=== PATIENT | female | born 1930 | race Caucasian/White ===

== ENCOUNTER → 2016-11-17 | Outpatient (CLI) | payer MEDICARE, OTHER ==
[~2016-11-17] MED LIST: ACET325T PO; ALBUAER3 INH; AMLO5 PO; APIX5TAB PO; ATEN25TA PO; BENETAB PO; COLA100C3 PO; ESTR.625 PO; FEXO15TA PO; FURO1TAB62 PO; HYDR-3516 PO; K-TA10TA PO; LACTCAP8 PO; LEVO.05 PO; LISI10TA3 PO; MOME17I EACH NARE; MULT1TAB84 PO; ZOFR4TAB3 SL
[2016-11-17 13:05] LABS: AUTOMATED NEUTROPHIL # 3.7 TH/MM3 (1.8-7.7); BASOPHIL # 0.1 TH/MM3 (0-0.2); BASOPHIL % 0.9 % (0.0-2.0); EOSINOPHIL # 0.1 TH/MM3 (0-0.4); EOSINOPHIL % 2.5 % (0.0-4.0); HEMATOCRIT 38.1 % (35.0-46.0); HEMO FLAGS DIFF FINAL; LYMPH % 16.6 % (9.0-44.0); LYMPHOCYTE # 0.9 TH/MM3 (1.0-4.8); MEAN CELL VOLUME 92.7 FL (80.0-100.0); MEAN CORPUSCULAR HEMOGLOBIN 31.7 PG (27.0-34.0); MEAN CORPUSCULAR HGB CONC 34.2 % (32.0-36.0); MONO % 11.4 % (0.0-8.0); NEUT % 68.6 % (16.0-70.0); PLATELET COUNT 191 TH/MM3 (150-450); RED CELL DISTRIBUTION WIDTH 13.2 % (11.6-17.2); WHITE BLOOD COUNT 5.4 TH/MM3 (4.0-11.0)
[2016-11-17 13:32] LABS: ALKALINE PHOSPHATASE 62 U/L (45-117); ALT (GPT) 22 U/L (10-53); ANION GAP 6 MEQ/L (5-15); AST (GOT) 18 U/L (15-37); BICARBONATE 29.7 MEQ/L (21.0-32.0); BLOOD UREA NITROGEN 16 MG/DL (7-18); CHLORIDE 101 MEQ/L (98-107); GLOMERULAR FILTRATION RATE 69 ML/MIN (>89); GLUCOSE,FASTING 75 MG/DL (74-99); HDL CHOLESTEROL 79.8 MG/DL (40.0-60.0); LDL CHOLESTEROL 85 MG/DL (0-99); POTASSIUM 4.1 MEQ/L (3.5-5.1); SODIUM (NA) 137 MEQ/L (136-145); TOTAL BILIRUBIN ADULT 0.5 MG/DL (0.2-1.0)
== END ==
LOC: PLAB 10:00
PROVIDERS: ATTEND Family Medicine
DX: I25.10 Atherosclerotic heart disease of native coronary artery without angina pectoris (principal); E78.5 Hyperlipidemia, unspecified; E03.2 Hypothyroidism due to medicaments and other exogenous substances; I10 Essential (primary) hypertension; Z79.01 Long term (current) use of anticoagulants
CPT/HCPCS: 36415; 80053; 80061; 84443; 85025

== ENCOUNTER 2017-01-19 15:56 | Emergency (ER) | payer MEDICARE, OTHER ==
[~2017-01-19] VITALS: Ht 160 cm; Wt 72.0 kg
[~2017-01-19 15:56] MED LIST changes: -ACET325T PO; -ALBUAER3 INH; -HYDR-3516 PO; -MOME17I EACH NARE; -MULT1TAB84 PO
[2017-01-19 16:00] VITALS: BP 158/80; PULSE 83; RESP 18; TEMP 97.6; O2SAT 97
[2017-01-19] MEDS ORDERED: SODIUM CHLOR 0.9% 1000 ML INJ 1,000 ML IV SCH (16:26)
[2017-01-19] MEDS ORDERED: MULT1TAB84 PO (16:29)
[2017-01-19] MEDS ORDERED: HYDR-3516 PO (16:29)
[2017-01-19] MEDS ORDERED: MOME17I EACH NARE (16:29)
[2017-01-19] MEDS ORDERED: BENETAB PO (16:29)
[2017-01-19] MEDS ORDERED: ALBUAER3 INH (16:29)
[2017-01-19] MEDS ORDERED: ONDANSETRON HCL 4 MG/2 ML VIAL IVP ONE (16:30)
[2017-01-19] MEDS: MORPHINE SULFATE 4 MG/ML INJ IV PUSH ONE ×2 (16:30→16:56)
[2017-01-19] MEDS ORDERED: SODIUM CHLORIDE 0.9% FLUSH 10 ML FLUSH IV FLUSH PRN (16:30)
--- NOTE | 2017-01-19 16:39 | PD ---
HPI Chief Complaint: Abdominal Pain Time Seen by Provider: 16:19 Travel History International Travel<30 days: No Contact w/Intl Traveler<30days: No Traveled to known affect area: No History of Present Illness HPI 86yo F with PMH of HTN and significant surgical history including hysterectomy, cholecystectomy, appendectomy, partial colon resection after polyp was found presents to the ED with c/o left sided abdominal pain, intermittent watery, nonbloody diarrhea and nausea for 2 weeks. Pt denies any fever, recent traveling, vomiting, urinary complaints. Pt did take antibiotic for URI about 1 month ago. 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 ) Cardiovascular Problems: Yes (PACER) High Cholesterol: Yes Chemotherapy: No Chest Pain: No Congestive Heart Failure: Yes Cerebrovascular Accident: No Diabetes: No Diminished Hearing: No Gastrointestinal Disorders: Yes (IBS) GERD: Yes Genitourinary: Yes Hepatitis: No Hiatal Hernia: No Hypertension: Yes Immune Disorder: No Implanted Vascular Access Dvce: Yes (PACEMAKER LEFT UPPER CHEST) 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) Psychiatric: No Reproductive: No Respiratory: Yes (ASTHMA) Immunizations Current: Yes Shingles: Yes Sleep Apnea: No Thyroid Disease: Yes Tetanus Vaccination: > 5 Years Influenza Vaccination: Yes ?: Not Menopausal: Yes : 4 Para: 3 Miscarriage: 1 Ovarian Cysts: Yes Past Surgical History Abdominal Surgery: Yes (PARTIAL COLECTOMY (POLYPS), LAP XUAN, APPY) AICD: No Appendectomy: Yes Body Medical Devices: RIGHT RENAL ARTERY STENT Cardiac Surgery: Yes (PACEMAKER) Cholecystectomy: Yes Ear Surgery: No Endocrine Surgery: No Eye Surgery: Yes (BILAT CATARACT EXT) Genitourinary Surgery: Yes (RIGHT RENAL ARTERY STENT IMPL) Gynecologic Surgery: Yes ([place], UNILAT. OOPHORECT.) Hysterectomy: No Joint Replacement: No Neurologic Surgery: Yes (LUMBAR FUSION, LUMBAR LAMI) Oral Surgery: Yes (T & A) Pacemaker: Yes (MEDTRONIC) Thoracic Surgery: No Tonsillectomy: Yes Other Surgery: Yes (NOSE SURGERY, PACEMAKER REPLACEMENT) Social History Alcohol Use: No Tobacco Use: No Substance Use: No Allergies-Medications (Allergen,Severity, Reaction): Coded Allergies: Adhesives (Verified Allergy, Severe, RASH, BLISTERS, 01/19/17) Cepacol (Verified Allergy, Severe, throat closes, 01/19/17) Levaquin (Verified Allergy, Severe, Nausea/Vomiting, 01/19/17) Penicillin (Verified Allergy, Severe, Rash, SWELLING, 01/19/17) Sulfa (Verified Allergy, Severe, Rash, 01/19/17) Latex (Verified Allergy, Mild, Rash, 01/19/17) Nonsteroidal Anti-Inflammatory Agts (Verified Adverse Reaction, Severe, Rash, 01/19/17) Uncoded Allergies: TEGADERM (Allergy, Severe, RASH, 10/24/14) Reported Meds & Prescriptions Reported Meds & Active Scripts Active Reported Benefiber (Wheat Dextrin) 1 Tab 1 Tab PO DAILY Multivitamin Adults (Multiple Vitamins W/ Minerals) 1 Tab 1 Tab PO DAILY Nasonex Nasal [place] (Mometasone Furoate) 50 Mcg/Act Naspr 2 [place] EACH NARE DAILY PRN Hydrocodone-Acetaminophen 5-325 mg Tab 1 Tab PO Q6H PRN Proair Hfa 8.5 GM Inh (Albuterol Sulfate) 90 Mcg/Act Aer 2 Puff INH Q4-6H PRN 108 mcg/actuation Lisinopril 10 Mg Tab 10 Mg PO DAILY@1600 Probiotic (Lactobacillus Acidophilus) 1 Cap Cap 1 Cap PO DAILY Premarin (Estrogens Conjugated) 0.625 Mg Tab 0.625 Mg PO DAILY K-Tab (Potassium Chloride) 10 Meq Tab 10 Meq PO HS Synthroid (Levothyroxine Sodium) 50 Mcg Tab 50 Mcg PO DAILY Eliquis (Apixaban) 5 Mg Tab 5 Mg PO BID Norvasc (Amlodipine Besylate) 5 Mg Tab 5 Mg PO DAILY Lasix (Furosemide) 20 Mg Tab 20 Mg PO DAILY Atenolol 25 Mg Tab 25 Mg PO DAILY Nanci Allergy (Fexofenadine HCl) 180 Mg Tab 180 Mg PO DAILY Review of Systems Except as stated in HPI: all other systems reviewed are Neg Physical Exam Narrative GENERAL: 86yo F in mild distress. SKIN: Focused skin assessment warm/dry. HEAD: Atraumatic. Normocephalic. CARDIOVASCULAR: Regular rate and rhythm. No murmur appreciated. RESPIRATORY: No accessory muscle use. Clear to auscultation. Breath sounds equal bilaterally. GASTROINTESTINAL: Abdomen soft, +TTP LLQ >LUQ. No rebound tenderness or guarding. MUSCULOSKELETAL: No obvious deformities. No clubbing. No cyanosis. Trace lower ext edema. NEUROLOGICAL: Awake and alert. No obvious cranial nerve deficits. Motor grossly within normal limits. Normal speech. PSYCHIATRIC: Appropriate mood and affect; insight and judgment normal. Data Data Last Documented VS Vital Signs Date Time Temp Pulse Resp B/P Pulse Ox O2 Delivery O2 Flow Rate FiO2 01/19/17 16:50 98 Room Air 01/19/17 16:50 65 16 146/89 01/19/17 16:00 97.6 Orders Urinalysis - C+S If Indicated (01/19/17 16:04) Complete Blood Count With Diff (01/19/17 16:26) Comprehensive Metabolic Panel (01/19/17 16:26) Lipase (01/19/17 16:26) Prothrombin Time / Inr (Pt) (01/19/17 16:26) Act Partial Throm Time (Ptt) (01/19/17 16:26) Ct Abd/Pel W Iv Contrast(Rout) (01/19/17 16:26) Iv Access Insert/Monitor (01/19/17 16:26) Ecg Monitoring (01/19/17 16:26) Oximetry (01/19/17 16:26) Morphine Inj (Morphine Inj) (01/19/17 16:30) Ondansetron Inj (Zofran Inj) (01/19/17 16:30) Sodium Chlor 0.9% 1000 Ml Inj (Ns 1000 M (01/19/17 16:26) Sodium Chloride 0.9% Flush (Ns Flush) (01/19/17 16:30) C Diff Toxin Pcr (01/19/17 16:39) Iohexol 350 Inj (Omnipaque 350 Inj) (01/19/17 17:56) Labs Laboratory Tests Test 01/19/17 01/19/17 16:40 16:45 Urine Color YELLOW Urine Turbidity CLEAR Urine pH 5.5 Urine Specific [place] 1.018 Urine Protein NEG mg/dL Urine Glucose (UA) NEG mg/dL Urine Ketones NEG mg/dL Urine Occult Blood NEG Urine Nitrite NEG Urine Bilirubin NEG Urine Leukocyte Esterase NEG Urine WBC 0-2 /hpf Urine Squamous Epithelial 0-5 /hpf Cells Microscopic Urinalysis Comment CULT NOT INDICATED White Blood Count 6.8 TH/MM3 Red Blood Count 4.32 MIL/MM3 Hemoglobin 13.1 GM/DL Hematocrit 39.8 % Mean Corpuscular Volume 92.1 FL Mean Corpuscular Hemoglobin 30.4 PG Mean Corpuscular Hemoglobin 33.0 % Concent Red Cell Distribution Width 12.5 % Platelet Count 219 TH/MM3 Mean Platelet Volume 7.8 FL Neutrophils (%) (Auto) 58.1 % Lymphocytes (%) (Auto) 30.3 % Monocytes (%) (Auto) 9.1 % Eosinophils (%) (Auto) 1.9 % Basophils (%) (Auto) 0.6 % Neutrophils # (Auto) 4.0 TH/MM3 Lymphocytes # (Auto) 2.1 TH/MM3 Monocytes # (Auto) 0.6 TH/MM3 Eosinophils # (Auto) 0.1 TH/MM3 Basophils # (Auto) 0.0 TH/MM3 CBC Comment DIFF FINAL Differential Comment Prothrombin Time 10.3 SEC Prothromb Time International 0.9 RATIO Ratio Activated Partial 27.5 SEC Thromboplast Time Sodium Level 135 MEQ/L Potassium Level 3.7 MEQ/L Chloride Level 100 MEQ/L Carbon Dioxide Level 27.4 MEQ/L Anion Gap 8 MEQ/L Blood Urea Nitrogen 17 MG/DL Creatinine 0.86 MG/DL Estimat Glomerular Filtration 63 ML/MIN Rate Random Glucose 102 MG/DL Calcium Level 8.7 MG/DL Total Bilirubin 0.2 MG/DL Aspartate Amino Transf 21 U/L (AST/SGOT) Alanine Aminotransferase 24 U/L (ALT/SGPT) Alkaline Phosphatase 66 U/L Total Protein 7.3 GM/DL Albumin 3.3 GM/DL Lipase 177 U/L [facility] Medical Decision Making Medical Screen Exam Complete: Yes Emergency Medical Condition: Yes Interpretation(s) Laboratory Tests Test 01/19/17 01/19/17 16:40 16:45 Urine Color YELLOW (YELLW/STRAW) Urine Turbidity CLEAR (CLEAR) Urine pH 5.5 (5.0-8.5) Urine Specific [place] 1.018 (1.002-1.035) Urine Protein NEG mg/dL (NEG-TRACE) Urine Glucose (UA) NEG mg/dL (NEG) Urine Ketones NEG mg/dL (NEG) Urine Occult Blood NEG (NEG) Urine Nitrite NEG (NEG) Urine Bilirubin NEG (NEG) Urine Leukocyte Esterase NEG (NEG) Urine WBC 0-2 /hpf (0-5) Urine Squamous Epithelial 0-5 /hpf (0-5) Cells Microscopic Urinalysis Comment CULT NOT INDICATED White Blood Count 6.8 TH/MM3 (4.0-11.0) Red Blood Count 4.32 MIL/MM3 (4.00-5.30) Hemoglobin 13.1 GM/DL (11.6-15.3) Hematocrit 39.8 % (35.0-46.0) Mean Corpuscular Volume 92.1 FL (80.0-100.0) Mean Corpuscular Hemoglobin 30.4 PG (27.0-34.0) Mean Corpuscular Hemoglobin 33.0 % Concent (32.0-36.0) Red Cell Distribution Width 12.5 % (11.6-17.2) Platelet Count 219 TH/MM3 (150-450) Mean Platelet Volume 7.8 FL (7.0-11.0) Neutrophils (%) (Auto) 58.1 % (16.0-70.0) Lymphocytes (%) (Auto) 30.3 % (9.0-44.0) Monocytes (%) (Auto) 9.1 % (0.0-8.0) Eosinophils (%) (Auto) 1.9 % (0.0-4.0) Basophils (%) (Auto) 0.6 % (0.0-2.0) Neutrophils # (Auto) 4.0 TH/MM3 (1.8-7.7) Lymphocytes # (Auto) 2.1 TH/MM3 (1.0-4.8) Monocytes # (Auto) 0.6 TH/MM3 (0-0.9) Eosinophils # (Auto) 0.1 TH/MM3 (0-0.4) Basophils # (Auto) 0.0 TH/MM3 (0-0.2) CBC Comment DIFF FINAL Differential Comment Prothrombin Time 10.3 SEC (9.8-11.6) Prothromb Time International 0.9 RATIO Ratio Activated Partial 27.5 SEC Thromboplast Time (24.3-30.1) Sodium Level 135 MEQ/L (136-145) Potassium Level 3.7 MEQ/L (3.5-5.1) Chloride Level 100 MEQ/L (98-107) Carbon Dioxide Level 27.4 MEQ/L (21.0-32.0) Anion Gap 8 MEQ/L (5-15) Blood Urea Nitrogen 17 MG/DL (7-18) Creatinine 0.86 MG/DL (0.50-1.00) Estimat Glomerular Filtration 63 ML/MIN (>89) Rate Random Glucose 102 MG/DL (74-106) Calcium Level 8.7 MG/DL (8.5-10.1) Total Bilirubin 0.2 MG/DL (0.2-1.0) Aspartate Amino Transf 21 U/L (15-37) (AST/SGOT) Alanine Aminotransferase 24 U/L (10-53) (ALT/SGPT) Alkaline Phosphatase 66 U/L (45-117) Total Protein 7.3 GM/DL (6.4-8.2) Albumin 3.3 GM/DL (3.4-5.0) Lipase 177 U/L (73-393) Last Impressions Abdomen/Pelvis CT 01/19/17 1626 Signed Impressions: Service Date/Time: Thursday, January 19, 2017 17:46 - CONCLUSION: 1. Unremarkable bowel gas pattern with no inflammatory change or obstruction. 2. Status post cholecystectomy. Zion Lopez MD Differential Diagnosis Diverticulitis vs. cdiff colitis vs. malignancy vs. gastroenteritis Narrative Course 86yo F with intermittent diarrhea for 2 weeks. However, VS stable and pt is not tachycardic or hypotensive. Labs reviewed, no leukocytosis. BUN/ creatinine normal. Lipase normal. UA negative. Cta/p unremarkable. No inflammatory change or obstruction. Pt given NS IVF, zofran and morphine 2mg IV. Pt reevaluated at bedside and denies any nausea or abdominal pain. Abd soft, NT/ ND. Pt states she only had 1 episode of diarrhea today so was not able to give a sample. Pt is well appearing and can follow up with PMD. Return precautions given. Diagnosis Primary Impression: Abdominal pain Qualified Code: R10.32 - Left lower quadrant pain Patient Instructions: General Instructions Departure Forms: Tests/Procedures Additional Instructions: Please follow up with your PMD in 1-2 days. Return to the ED if symptoms worsen. Med/Other Pt SpecificInfo: Prescription(s) given Scripts Acetaminophen 325 Mg [id number] Mg PO Q4-6H PRN (PAIN SCALE 1 TO 4) #20 TAB Ref 0 Prov:Costa,Lori DO 01/19/17 Disposition: 01 DISCHARGE HOME Condition: Stable Lori Costa DO Jan 19, 2017 16:39
[2017-01-19 16:50] VITALS: BP 146/89; PULSE 65; RESP 16; O2SAT 98
[2017-01-19 17:06] LABS: BASOPHIL % 0.6 % (0.0-2.0); EOSINOPHIL # 0.1 TH/MM3 (0-0.4); EOSINOPHIL % 1.9 % (0.0-4.0); HEMATOCRIT 39.8 % (35.0-46.0); HEMO FLAGS DIFF FINAL; LYMPH % 30.3 % (9.0-44.0); LYMPHOCYTE # 2.1 TH/MM3 (1.0-4.8); MEAN CELL VOLUME 92.1 FL (80.0-100.0); MEAN CORPUSCULAR HEMOGLOBIN 30.4 PG (27.0-34.0); MONO % 9.1 % (0.0-8.0); NEUT % 58.1 % (16.0-70.0); PLATELET COUNT 219 TH/MM3 (150-450); RED BLOOD COUNT 4.32 MIL/MM3 (4.00-5.30); RED CELL DISTRIBUTION WIDTH 12.5 % (11.6-17.2); WHITE BLOOD COUNT 6.8 TH/MM3 (4.0-11.0)
[2017-01-19 17:06] LABS: BLOOD, URINE NEG (NEG); GLUCOSE,URINE NEG (NEG); KETONE, URINE NEG (NEG); NITRITE,URINE NEG (NEG); PH, URINE 5.5 (5.0-8.5)
[2017-01-19 17:12] LABS: CHLORIDE 100 MEQ/L (98-107); POTASSIUM 3.7 MEQ/L (3.5-5.1); SODIUM (NA) 135 MEQ/L (136-145)
[2017-01-19 17:14] LABS: URINE COLOR YELLOW (YELLW/STRAW)
[2017-01-19 17:16] LABS: COMMENT (UR) CULT NOT INDICATED; CULTURE IF INDICATED CULT NOT INDICATED; SQUAMOUS EPITHELIAL CELL URINE 0-5 /hpf (0-5); WBC, URINE 0-2 /hpf (0-5)
[2017-01-19 17:16] LABS: ANION GAP 8 MEQ/L (5-15); APTT (PATIENT) 27.5 SEC (24.3-30.1); BICARBONATE 27.4 MEQ/L (21.0-32.0); BLOOD UREA NITROGEN 17 MG/DL (7-18); INTERNATIONAL NORMALIZED RATIO 0.9 RATIO; PROTHROMBIN TIME - PATIENT 10.3 SEC (9.8-11.6)
[2017-01-19 17:19] LABS: ALT (GPT) 24 U/L (10-53); AST (GOT) 21 U/L (15-37); GLOMERULAR FILTRATION RATE 63 ML/MIN (>89)
[2017-01-19 17:20] LABS: TOTAL BILIRUBIN ADULT 0.2 MG/DL (0.2-1.0)
[2017-01-19 17:22] LABS: ALKALINE PHOSPHATASE 66 U/L (45-117)
[2017-01-19] MEDS ORDERED: IOHEXOL 350 MG/ML 10 ML VIAL (for RAD DIAG) IV ONE (17:56)
--- NOTE | 2017-01-19 18:08 | RADHPO ---
EXAM DATE/TIME: 01/19/2017 17:46 [facility] COMPARISON: CT ABDOMEN & PELVIS W CONTRAST, September 25, 2016, 23:41. INDICATIONS : Lower abdominal pain with diarrhea. IV CONTRAST: 75 cc Omnipaque 350 (iohexol) IV ORAL CONTRAST: No oral contrast ingested. RADIATION DOSE: 14.22 CTDIvol (mGy) MEDICAL HISTORY : Cardiovascular disease. Hypertension. SURGICAL HISTORY : Appendectomy. Cholecystectomy.Pacemaker.Lumbar fusion. Partial colectomy. Right renal stent. ENCOUNTER: Initial ACUITY: 2 weeks PAIN SCALE: 4/10 LOCATION: Left lower quadrant TECHNIQUE: Volumetric scanning of the abdomen and pelvis was performed. Using automated exposure control and ad justment of the mA and/or kV according to patient size, radiation dose was kept as low as reasonably achievable to obtain optimal diagnostic quality images. FINDINGS: LOWER LUNGS: The visualized lower lungs are clear. LIVER: Homogeneous density without lesion. There is no dilation of the biliary tree. The patient is status post cholecystectomy. SPLEEN: Normal size without lesion. PANCREAS: Within normal limits. KIDNEYS: Normal in size and shape. There is no mass, stone or hydronephrosis. ADRENAL GLANDS: Within normal limits. VASCULAR: There is no aortic aneurysm. BOWEL/MESENTERY: The stomach, small bowel, and colon demonstrate no acute abnormality. There is no free intraperitone al air or fluid. ABDOMINAL WALL: Within normal limits. RETROPERITONEUM: There is no lymphadenopathy. BLADDER: No wall thickening or mass. REPRODUCTIVE: Within normal limits. INGUINAL: There is no lymphadenopathy or hernia. MUSCULOSKELETAL: Within normal limits for patient age. CONCLUSION: 1. Unremarkable bowel gas pattern with no inflammatory change or obstruction. 2. Status post cholecystectomy. Zion Lopez MD on January 19, 2017 at 17:58 Board Certified Radiologist. This report was verified electronically.
[2017-01-19] MEDS ORDERED: ACET325T PO (18:37)
[2017-01-19 18:55] VITALS: BP 161/81; PULSE 61; RESP 16; O2SAT 98
== END 2017-01-19 19:09 | disposition home or self-care (01) ==
LOC: PHED 15:56
DX: R10.32 Left lower quadrant pain (principal); I45.10 Unspecified right bundle-branch block; E78.00 Pure hypercholesterolemia, unspecified; I50.9 Heart failure, unspecified; K58.9 Irritable bowel syndrome, unspecified; I10 Essential (primary) hypertension; Z95.0 Presence of cardiac pacemaker; J45.909 Unspecified asthma, uncomplicated
CPT/HCPCS: 74177; 80053; 81001; 83690; 85025; 85610; 85730; 96361; 96374; 99284; J2405; J7030; Q9967; J2270

== ENCOUNTER → 2017-05-13 | Outpatient (CLI) | payer MEDICARE, OTHER ==
[~2017-05-13] MED LIST changes: +ACET325T PO; +ALBUAER3 INH; +AMIO200T PO; +COLA100C PO; -COLA100C3 PO; +HYDR-3516 PO; +MOME17I EACH NARE; +MULT1TAB84 PO; +SYMB160A INH; -ZOFR4TAB3 SL
[2017-05-13 11:25] LABS: AUTOMATED NEUTROPHIL # 3.9 TH/MM3 (1.8-7.7); BASOPHIL % 0.6 % (0.0-2.0); EOSINOPHIL # 0.3 TH/MM3 (0-0.4); EOSINOPHIL % 3.8 % (0.0-4.0); HEMATOCRIT 37.1 % (35.0-46.0); HEMO FLAGS DIFF FINAL; LYMPH % 31.1 % (9.0-44.0); LYMPHOCYTE # 2.2 TH/MM3 (1.0-4.8); MEAN CELL VOLUME 91.8 FL (80.0-100.0); MEAN CORPUSCULAR HGB CONC 33.7 % (32.0-36.0); MONO % 8.8 % (0.0-8.0); NEUT % 55.7 % (16.0-70.0); PLATELET COUNT 247 TH/MM3 (150-450); RED BLOOD COUNT 4.04 MIL/MM3 (4.00-5.30); WHITE BLOOD COUNT 7.1 TH/MM3 (4.0-11.0)
[2017-05-13 11:48] LABS: ANION GAP 7 MEQ/L (5-15); AST (GOT) 16 U/L (15-37); BICARBONATE 27.6 MEQ/L (21.0-32.0); BLOOD UREA NITROGEN 24 MG/DL (7-18); CHLORIDE 101 MEQ/L (98-107); GLOMERULAR FILTRATION RATE 58 ML/MIN (>89); GLUCOSE,FASTING 74 MG/DL (74-99); SODIUM (NA) 136 MEQ/L (136-145)
[2017-05-13 11:49] LABS: ALT (GPT) 26 U/L (10-53)
[2017-05-13 11:59] LABS: ALKALINE PHOSPHATASE 50 U/L (45-117); HDL CHOLESTEROL 78.1 MG/DL (40.0-60.0); LDL CHOLESTEROL 75 MG/DL (0-99); TOTAL BILIRUBIN ADULT 0.4 MG/DL (0.2-1.0)
== END ==
LOC: PLAB 08:45
PROVIDERS: ATTEND Family Medicine
DX: I25.10 Atherosclerotic heart disease of native coronary artery without angina pectoris (principal); E78.5 Hyperlipidemia, unspecified; E03.2 Hypothyroidism due to medicaments and other exogenous substances; G25.81 Restless legs syndrome; I10 Essential (primary) hypertension; Z79.01 Long term (current) use of anticoagulants
CPT/HCPCS: 36415; 80053; 80061; 84443; 85025

== ENCOUNTER 2017-06-07 13:14 | Emergency (ER) | payer MEDICARE, OTHER ==
[~2017-06-07] VITALS: Ht 160 cm; Wt 72.0 kg
[~2017-06-07 13:14] MED LIST changes: -AMIO200T PO; -COLA100C PO; -SYMB160A INH
[2017-06-07 14:59] VITALS: PULSE 80; RESP 16; TEMP 97.3; O2SAT 96
[2017-06-07] MEDS ORDERED: LIDOCAINE VISCOUS 2% SOLN 15 ML UDC PO ONE (16:00)
[2017-06-07] MEDS ORDERED: SODIUM CHLORIDE 0.9% FLUSH 10 ML FLUSH IV FLUSH PRN (16:00)
--- NOTE | 2017-06-07 16:02 | PD ---
HPI Chief Complaint: ENT Complaint Time Seen by Provider: 15:53 Travel History International Travel<30 days: No Contact w/Intl Traveler<30days: No Traveled to known affect area: No History of Present Illness HPI 86-year-old female with history of asthma, here for evaluation of sore throat and cough. The patient states that she has had 2 asthma attacks over the last 2 weeks. She was started on prednisone by her primary care physician which she has finished. She has also had a sore throat for the last 5 days. She started taking clarithromycin for this 4 days ago. Sore throat is moderate, worse with swallowing making it difficult for her to swallow. She denies fevers. Cough is productive of clear sputum. She takes Nanci daily. 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 ) Cardiovascular Problems: Yes (PACER) High Cholesterol: Yes Chemotherapy: No Chest Pain: No Congestive Heart Failure: Yes Cerebrovascular Accident: No Diabetes: No Diminished Hearing: No Gastrointestinal Disorders: Yes (IBS) GERD: Yes Genitourinary: Yes Hepatitis: No Hiatal Hernia: No Hypertension: Yes Immune Disorder: No Implanted Vascular Access Dvce: Yes (PACEMAKER LEFT UPPER CHEST) 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 OOPHORECT.) Hysterectomy: No Joint Replacement: No Neurologic Surgery: Yes (LUMBAR FUSION, LUMBAR LAMI) Oral Surgery: Yes (T & A) Pacemaker: Yes (MEDTRONIC) Thoracic Surgery: No Tonsillectomy: Yes Other Surgery: Yes (NOSE SURGERY, PACEMAKER REPLACEMENT) Social History Alcohol Use: No Tobacco Use: No Substance Use: No Allergies-Medications (Allergen,Severity, Reaction): Coded Allergies: Sulfa (Sulfonamide Antibiotics) (Unverified Allergy, Severe, Rash, 06/07/17 ) adhesive (Unverified Allergy, Severe, RASH, BLISTERS, 06/07/17) cetylpyridinium chloride (Unverified Allergy, Severe, throat closes, ) levofloxacin (Unverified Allergy, Severe, Nausea/Vomiting, 06/07/17) penicillin G (Unverified Allergy, Severe, Rash, SWELLING, 06/07/17) latex (Unverified Allergy, Mild, Rash, 06/07/17) diclofenac (Unverified Adverse Reaction, Severe, Rash, 06/07/17) etodolac (Unverified Adverse Reaction, Severe, Rash, 06/07/17) flurbiprofen (Unverified Adverse Reaction, Severe, Rash, 06/07/17) ibuprofen (Unverified Adverse Reaction, Severe, Rash, 06/07/17) indomethacin (Unverified Adverse Reaction, Severe, Rash, 06/07/17) ketoprofen (Unverified Adverse Reaction, Severe, Rash, 06/07/17) ketorolac (Unverified Adverse Reaction, Severe, Rash, 06/07/17) naproxen (Unverified Adverse Reaction, Severe, Rash, 06/07/17) oxaprozin (Unverified Adverse Reaction, Severe, Rash, 06/07/17) Uncoded Allergies: TEGADERM (Allergy, Severe, RASH, 10/24/14) Reported Meds & Prescriptions Reported Meds & Active Scripts Active Reported Symbicort Inh (Budesonide/Formoterol Fumarate) 160-4.5 Mcg/Act Aero 1 Puff INH Q12HR Proair Hfa 8.5 GM Inh (Albuterol Sulfate) 90 Mcg/Act Aer 2 Puff INH Q4-6H PRN 108 mcg/actuation Colace (Docusate Sodium) 100 Mg Capsule 200 Mg PO HS Amiodarone (Amiodarone HCl) 200 Mg Tab 200 Mg PO DAILY Nasonex Nasal [place] (Mometasone Furoate) 50 Mcg/Act Naspr 2 [place] EACH NARE DAILY PRN Hydrocodone-Acetaminophen 5-325 mg Tab 1 Tab PO Q6H PRN Proair Hfa 8.5 GM Inh (Albuterol Sulfate) 90 Mcg/Act Aer 2 Puff INH Q4-6H PRN 108 mcg/actuation Lisinopril 10 Mg Tab 10 Mg PO DAILY@1600 Probiotic (Lactobacillus Acidophilus) 1 Cap Cap 1 Cap PO DAILY Premarin (Estrogens Conjugated) 0.625 Mg Tab 0.625 Mg PO DAILY K-Tab (Potassium Chloride) 10 Meq Tab 10 Meq PO HS Synthroid (Levothyroxine Sodium) 50 Mcg Tab 50 Mcg PO DAILY Eliquis (Apixaban) 5 Mg Tab 5 Mg PO BID Norvasc (Amlodipine Besylate) 5 Mg Tab 5 Mg PO DAILY Lasix (Furosemide) 20 Mg Tab 20 Mg PO DAILY Atenolol 25 Mg Tab 25 Mg PO DAILY Nanci Allergy (Fexofenadine HCl) 180 Mg Tab 180 Mg PO DAILY Review of Systems Except as stated in HPI: all other systems reviewed are Neg Physical Exam Narrative GENERAL: Well-developed, well-nourished, comfortable, no apparent distress. SKIN: Focused skin assessment warm/dry. No rash. HEAD: Atraumatic. Normocephalic. EYES: Pupils equal and round. No scleral icterus. No injection or drainage. ENT: No nasal bleeding or discharge. Mucous membranes pink and moist. Pharynx with mild erythema without exudate. Uvula is midline. No edema. Drooling or stridor. NECK: Trachea midline. No JVD. CARDIOVASCULAR: Regular rate and rhythm. RESPIRATORY: No accessory muscle use. Clear to auscultation. Breath sounds equal bilaterally. GASTROINTESTINAL: Abdomen soft, non-tender, nondistended. Hepatic and splenic margins not palpable. MUSCULOSKELETAL: No obvious deformities. No clubbing. No cyanosis. No edema. NEUROLOGICAL: Awake and alert. No obvious cranial nerve deficits. Motor grossly within normal limits. Normal speech. PSYCHIATRIC: Appropriate mood and affect; insight and judgment normal. Data Data Last Documented VS Vital Signs Date Time Temp Pulse Resp B/P (MAP) Pulse Ox O2 Delivery O2 Flow Rate FiO2 06/07/17 14:59 97.3 80 16 96 Orders Orders Complete Blood Count With Diff (06/07/17 15:59) Comprehensive Metabolic Panel (06/07/17 15:59) Prothrombin Time / Inr (Pt) (06/07/17 15:59) Act Partial Throm Time (Ptt) (06/07/17 15:59) Iv Access Insert/Monitor (06/07/17 15:59) Ecg Monitoring (06/07/17 15:59) Oximetry (06/07/17 15:59) Sodium Chloride 0.9% Flush (Ns Flush) (06/07/17 16:00) Chest, Single Ap (06/07/17 ) Monoscreen (06/07/17 15:59) Lidocaine 2% Viscous (Xylocaine 2% Visco (06/07/17 16:00) Methylprednisolone So Succ Inj (Solumedr (06/07/17 16:15) Ct Soft Tiss Neck W Iv Cont (06/07/17 ) Iodixanol 320 Inj (Rad Ct) (Visipaque 32 (06/07/17 17:48) Group A Rapid Strep Screen (06/07/17 17:50) Strep Culture (Group A) (06/07/17 17:50) Labs Laboratory Tests Test 06/07/17 16:17 06/07/17 17:10 White Blood Count 9.1 TH/MM3 Red Blood Count 4.66 MIL/MM3 Hemoglobin 14.0 GM/DL Hematocrit 42.5 % Mean Corpuscular Volume 91.1 FL Mean Corpuscular Hemoglobin 30.0 PG Mean Corpuscular Hemoglobin Concent 33.0 % Red Cell Distribution Width 13.5 % Platelet Count 327 TH/MM3 Mean Platelet Volume 7.1 FL Neutrophils (%) (Auto) 69.7 % Lymphocytes (%) (Auto) 18.1 % Monocytes (%) (Auto) 9.6 % Eosinophils (%) (Auto) 0.7 % Basophils (%) (Auto) 1.9 % Neutrophils # (Auto) 6.2 TH/MM3 Lymphocytes # (Auto) 1.7 TH/MM3 Monocytes # (Auto) 0.9 TH/MM3 Eosinophils # (Auto) 0.1 TH/MM3 Basophils # (Auto) 0.2 TH/MM3 CBC Comment DIFF FINAL Differential Comment Prothrombin Time 11.3 SEC Prothromb Time International Ratio 1.0 RATIO Activated Partial Thromboplast Time 28.9 SEC Blood Urea Nitrogen 21 MG/DL Creatinine 1.10 MG/DL Random Glucose 94 MG/DL Total Protein 7.9 GM/DL Albumin 3.6 GM/DL Calcium Level 8.5 MG/DL Alkaline Phosphatase 64 U/L Aspartate Amino Transf (AST/SGOT) 22 U/L Alanine Aminotransferase (ALT/SGPT) 28 U/L Total Bilirubin 0.5 MG/DL Sodium Level 132 MEQ/L Potassium Level 4.0 MEQ/L Chloride Level 98 MEQ/L Carbon Dioxide Level 27.1 MEQ/L Anion Gap 7 MEQ/L Estimat Glomerular Filtration Rate 47 ML/MIN MDM Medical Decision Making Medical Screen Exam Complete: Yes Emergency Medical Condition: Yes Medical Record Reviewed: Yes Differential Diagnosis Pharyngitis, strep pharyngitis, viral illness, pneumonia Narrative Course Initial vital signs show heart rate 80, pulse ox 96% on room air, oral temp of 97.3F. CBC is unremarkable. CMP is essentially unremarkable. [place] screen Group A strep is negative. CT neck: CONCLUSION: 1. No soft tissue mass. 2. No enlarged adenopathy. 3. No abscess. [place] spot pending. Patient and the patient's daughter were made aware of all findings. She was given some oral lidocaine and IV Solu-Medrol, however is continuing to complain of throat pain. She is able to swallow and tolerate clear liquids. No drooling or stridor on exam. Pharynx appears normal to me. I do not see any abnormal lesions or swelling. At this point she is stable for discharge home with outpatient follow-up with her primary care physician this week. She states she also has an ENT physician with whom she will try to follow-up with. I encouraged her to continue taking her clarithromycin that she started 4 days ago. She was informed on when to return to the emergency department. She verbalizes understanding and agreement with plan. Diagnosis Primary Impression: Pharyngitis Qualified Codes: J02.9 - Acute pharyngitis, unspecified Referrals: Primary Care Physician 3 days Additional Instructions: Follow up with your primary care physician this week. Stay hydrated with plenty of fluids. Take Tylenol for pain. Continue taking clarithromycin. Return to the emergency department for worsening symptoms or any other concerns. Disposition: 01 DISCHARGE HOME Condition: Stable Oren Mason MD Jun 07, 2017 16:02
[2017-06-07] MEDS ORDERED: ALBUAER3 INH (16:15)
[2017-06-07] MEDS ORDERED: AMIO200T PO (16:15)
[2017-06-07] MEDS ORDERED: SYMB160A INH (16:15)
[2017-06-07] MEDS ORDERED: methylPREDNISolone SOD SUCC 125 MG/2 ML VIAL IV PUSH ONE (16:15)
[2017-06-07] MEDS ORDERED: COLA100C PO (16:15)
[2017-06-07 16:44] LABS: AUTOMATED NEUTROPHIL # 6.2 TH/MM3 (1.8-7.7); BASOPHIL # 0.2 TH/MM3 (0-0.2); BASOPHIL % 1.9 % (0.0-2.0); EOSINOPHIL # 0.1 TH/MM3 (0-0.4); EOSINOPHIL % 0.7 % (0.0-4.0); HEMATOCRIT 42.5 % (35.0-46.0); LYMPH % 18.1 % (9.0-44.0); LYMPHOCYTE # 1.7 TH/MM3 (1.0-4.8); MEAN CELL VOLUME 91.1 FL (80.0-100.0); MONO % 9.6 % (0.0-8.0); NEUT % 69.7 % (16.0-70.0); PLATELET COUNT 327 TH/MM3 (150-450); RED BLOOD COUNT 4.66 MIL/MM3 (4.00-5.30); RED CELL DISTRIBUTION WIDTH 13.5 % (11.6-17.2); WHITE BLOOD COUNT 9.1 TH/MM3 (4.0-11.0)
[2017-06-07 16:47] LABS: HEMO FLAGS DIFF FINAL
[2017-06-07 16:48] LABS: CHLORIDE 98 MEQ/L (98-107); SODIUM (NA) 132 MEQ/L (136-145)
[2017-06-07 16:52] LABS: ANION GAP 7 MEQ/L (5-15); APTT (PATIENT) 28.9 SEC (24.3-30.1); BICARBONATE 27.1 MEQ/L (21.0-32.0); BLOOD UREA NITROGEN 21 MG/DL (7-18); PROTHROMBIN TIME - PATIENT 11.3 SEC (9.8-11.6)
[2017-06-07 16:55] LABS: ALT (GPT) 28 U/L (10-53); AST (GOT) 22 U/L (15-37); GLOMERULAR FILTRATION RATE 47 ML/MIN (>89)
[2017-06-07 16:56] LABS: TOTAL BILIRUBIN ADULT 0.5 MG/DL (0.2-1.0)
[2017-06-07 16:58] LABS: ALKALINE PHOSPHATASE 64 U/L (45-117)
--- NOTE | 2017-06-07 17:06 | RADRPT ---
EXAM DATE/TIME: 06/07/2017 16:46 [facility] COMPARISON: CHEST SINGLE AP, March 20, 2016, 1:56. INDICATIONS : Cough since Wednesday. MEDICAL HISTORY : Congestive heart failure. TIA. Afib. Asthma. SURGICAL HISTORY : Pacemaker. Cardiac cath. ENCOUNTER: Initial ACUITY: 3 days PAIN SCORE: 0/10 LOCATION: Bilateral chest FINDINGS: Stable linear parenchymal opacities in the left lower lung zone. Slight increased opacity at the left lung base. Multiple lead pacemaker in stable position. Cardiome saw contours are stable. Remainder o f the exam is unchanged. CONCLUSION: 1. Stable left lower lobe atelectasis/scarring with mild increased left lower lobe opacity concerning for superimposed developing airspace disease. Consider formal PA and lateral views of the chest for better evaluation as indicated. Aleksandar Higgins MD on June 07, 2017 at 17:02 Board Certified Radiologist. This report was verified electronically.
[2017-06-07] MEDS ORDERED: IODIXANOL 320 MG/ML 10 ML VIAL (for Rad CT) IV ONE (17:48)
--- NOTE | 2017-06-07 17:52 | RADRPT ---
EXAM DATE/TIME: 06/07/2017 17:17 [facility] COMPARISON: No previous studies available for comparison. INDICATIONS : Sore throat for 5 days. IV CONTRAST: 65 cc Visipaque (iodixanol) IV RADIATION DOSE: 14.33 CTDIvol (mGy) MEDICAL HISTORY : Hypertension. Cardiovascular disease SURGICAL HISTORY : Pacemaker. Cholecystectomy.Tonsillectomy.Appendectomy ENCOUNTER: Initial ACUITY: 4 - 6 days PAIN SCALE: 4/10 LOCATION: neck TECHNIQUE: Volumetric scanning of the neck was performed. Using automated exposure control and adjustment of th e mA and/or kV according to patient size, radiation dose was kept as low as reasonably achievable to obtain optimal diagnostic quality images. DICOM format image data is available electronically for r eview and comparison. FINDINGS: NASOPHARYNX: The nasopharyngeal airway has a normal configuration. No mucosal thickening or mass is seen. OROPHARYNX: The intrinsic muscles of the tongue are symmetric. The tonsillar pillars are intact. The prevertebr al soft tissues are not thickened. LARYNX: The supraglottic, glottic, and infraglottic structures are intact. PARAPHARYNGEAL: The parapharyngeal space is intact. SALIVARY GLANDS: The parotid and submandibular glands are intact. LYMPH NODES: No enlarged or necrotic-appearing nodes. THYROID: Homogeneous enhancement without evidence of nodule. BONES: Unremarkable. CONCLUSION: 1. No soft tissue mass. 2. No enlarged adenopathy. 3. No abscess. Gregorio Pino MD on June 07, 2017 at 17:49 Board Certified Radiologist. This report was verified electronically.
[2017-06-07 18:16] VITALS: O2SAT 98
== END 2017-06-07 18:26 | disposition home or self-care (01) ==
LOC: PHED 13:14 → PHEFT 18:26
DX: J02.9 Acute pharyngitis, unspecified (principal); I11.0 Hypertensive heart disease with heart failure; I25.10 Atherosclerotic heart disease of native coronary artery without angina pectoris; I45.10 Unspecified right bundle-branch block; I48.91 Unspecified atrial fibrillation; I50.9 Heart failure, unspecified; J45.909 Unspecified asthma, uncomplicated; Z86.73 Personal history of transient ischemic attack (TIA), and cerebral infarction without residual deficits; Z95.0 Presence of cardiac pacemaker; Z88.0 Allergy status to penicillin
CPT/HCPCS: 70491; 71010; 80053; 85025; 85610; 85730; 86308; 87081; 87880; 96374; 99285; J2930; Q9967

== ENCOUNTER → 2017-06-29 | Outpatient (CLI) | payer MEDICARE, OTHER ==
[~2017-06-29] MED LIST changes: -ACET325T PO; +AMIO200T PO; -BENETAB PO; +COLA100C PO; -MULT1TAB84 PO; +SYMB160A INH
== END ==
LOC: PLAB 09:29
PROVIDERS: ATTEND Family Medicine
DX: E03.2 Hypothyroidism due to medicaments and other exogenous substances (principal)
CPT/HCPCS: 36415; 84443

== ENCOUNTER → 2017-09-03 | Outpatient (CLI) | payer MEDICARE, OTHER ==
[~2017-09-03] MED LIST changes: -COLA100C PO; +COLA100C5 PO
[2017-09-03 14:26] LABS: AUTOMATED NEUTROPHIL # 2.1 TH/MM3 (1.8-7.7); EOSINOPHIL # 0.2 TH/MM3 (0-0.4); EOSINOPHIL % 4.3 % (0.0-4.0); HEMATOCRIT 36.7 % (35.0-46.0); HEMO FLAGS DIFF FINAL; LYMPH % 34.9 % (9.0-44.0); LYMPHOCYTE # 1.5 TH/MM3 (1.0-4.8); MEAN CELL VOLUME 92.6 FL (80.0-100.0); MEAN CORPUSCULAR HEMOGLOBIN 31.3 PG (27.0-34.0); MEAN CORPUSCULAR HGB CONC 33.9 % (32.0-36.0); MONO % 11.5 % (0.0-8.0); NEUT % 48.3 % (16.0-70.0); PLATELET COUNT 203 TH/MM3 (150-450); RED BLOOD COUNT 3.96 MIL/MM3 (4.00-5.30); RED CELL DISTRIBUTION WIDTH 13.4 % (11.6-17.2); WHITE BLOOD COUNT 4.4 TH/MM3 (4.0-11.0)
[2017-09-03 14:45] LABS: ANION GAP 7 MEQ/L (5-15); AST (GOT) 18 U/L (15-37); BICARBONATE 25.9 MEQ/L (21.0-32.0); BLOOD UREA NITROGEN 13 MG/DL (7-18); CHLORIDE 98 MEQ/L (98-107); GLOMERULAR FILTRATION RATE 64 ML/MIN (>89); GLUCOSE,FASTING 78 MG/DL (74-99); POTASSIUM 4.1 MEQ/L (3.5-5.1); SODIUM (NA) 131 MEQ/L (136-145)
[2017-09-03 14:57] LABS: ALKALINE PHOSPHATASE 57 U/L (45-117); ALT (GPT) 16 U/L (10-53); HDL CHOLESTEROL 73.2 MG/DL (40.0-60.0); LDL CHOLESTEROL 80 MG/DL (0-99); TOTAL BILIRUBIN ADULT 0.5 MG/DL (0.2-1.0)
== END ==
LOC: PLAB 09:02
PROVIDERS: ATTEND Family Medicine
DX: I48.91 Unspecified atrial fibrillation (principal); I25.10 Atherosclerotic heart disease of native coronary artery without angina pectoris; E78.5 Hyperlipidemia, unspecified; I11.9 Hypertensive heart disease without heart failure; E03.2 Hypothyroidism due to medicaments and other exogenous substances; Z79.01 Long term (current) use of anticoagulants
CPT/HCPCS: 36415; 80053; 80061; 84443; 85025

== ENCOUNTER 2017-12-21 06:19 | Observation (INO) | payer MEDICARE, OTHER ==
[~2017-12-21] VITALS: Ht 157.5 cm; Wt 73.5 kg
[2017-12-21] VITALS (13 sets, daily range): BP systolic 123–191; BP diastolic 58–73; PULSE 61–88; RESP 16–20; TEMP 96.9–97.9; O2SAT 89–98
[2017-12-21] MEDS ORDERED: methylPREDNISolone SOD SUCC 125 MG/2 ML VIAL IV PUSH ONE (06:45)
[2017-12-21] MEDS ORDERED: SODIUM CHLORIDE 0.9% FLUSH 10 ML FLUSH IVF PRN (06:45)
[2017-12-21] MEDS ORDERED: RESP: ALBUTEROL 2.5 MG/IPRATROPIUM 0.5 MG NEB (SCH) INH ONE (06:45)
[2017-12-21] MEDS ORDERED: DOXY100C PO (06:48)
--- NOTE | 2017-12-21 06:53 | PD ---
HPI Chief Complaint: Cough/SOB Time Seen by Provider: 06:44 Travel History International Travel<30 days: No Contact w/Intl Traveler<30days: No Traveled to known affect area: No History of Present Illness HPI This is a 86-year-old female with a history of asthma/chronic bronchitis, hypertension, hyperlipidemia, who presents today with complaints of cough and congestion 3-4 days. Patient states she was seen yesterday at urgent care for the same thing was prescribed doxycycline and prednisone. She states she took her doxycycline last night with her other medications however she threw them up. She states that she has been dry heaving all night. The patient reports productive cough with yellow phlegm. She says she does not get fevers however has felt chills and has felt sweaty over the last 24 hours. Patient also complains of shortness of breath whenever she gets up or sits up. There is no abdominal pain. There is no diarrhea. There is no change in her urine output. 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 ) Cardiovascular Problems: Yes (PACER) High Cholesterol: Yes Chemotherapy: No Chest Pain: No Congestive Heart Failure: Yes Cerebrovascular Accident: No Diabetes: No Diminished Hearing: No Endocrine: Yes Gastrointestinal Disorders: Yes (IBS) GERD: Yes Genitourinary: Yes Hepatitis: No Hiatal Hernia: No Hypertension: Yes Immune Disorder: No Implanted Vascular Access Dvce: Yes (PACEMAKER LEFT UPPER CHEST) 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 OOPHORECT.) Hysterectomy: No Joint Replacement: No Neurologic Surgery: Yes (LUMBAR FUSION, LUMBAR LAMI) Oral Surgery: Yes (T & A) Pacemaker: Yes (MEDTRONIC) Thoracic Surgery: No Tonsillectomy: Yes Other Surgery: Yes (NOSE SURGERY, PACEMAKER REPLACEMENT) Social History Alcohol Use: No Tobacco Use: No Substance Use: No Allergies-Medications (Allergen,Severity, Reaction): Coded Allergies: Sulfa (Sulfonamide Antibiotics) (Unverified Allergy, Severe, Rash, 06/07/17 ) adhesive (Unverified Allergy, Severe, RASH, BLISTERS, 06/07/17) cetylpyridinium chloride (Unverified Allergy, Severe, throat closes, ) levofloxacin (Unverified Allergy, Severe, Nausea/Vomiting, 06/07/17) penicillin G (Unverified Allergy, Severe, Rash, SWELLING, 06/07/17) latex (Unverified Allergy, Mild, Rash, 06/07/17) diclofenac (Unverified Adverse Reaction, Severe, Rash, 06/07/17) etodolac (Unverified Adverse Reaction, Severe, Rash, 06/07/17) flurbiprofen (Unverified Adverse Reaction, Severe, Rash, 06/07/17) ibuprofen (Unverified Adverse Reaction, Severe, Rash, 06/07/17) indomethacin (Unverified Adverse Reaction, Severe, Rash, 06/07/17) ketoprofen (Unverified Adverse Reaction, Severe, Rash, 06/07/17) ketorolac (Unverified Adverse Reaction, Severe, Rash, 06/07/17) naproxen (Unverified Adverse Reaction, Severe, Rash, 06/07/17) oxaprozin (Unverified Adverse Reaction, Severe, Rash, 06/07/17) Uncoded Allergies: TEGADERM (Allergy, Severe, RASH, 10/24/14) Reported Meds & Prescriptions Reported Meds & Active Scripts Active Reported Symbicort Inh (Budesonide/Formoterol Fumarate) 160-4.5 Mcg/Act Aero 1 Puff INH Q12HR Proair Hfa 8.5 GM Inh (Albuterol Sulfate) 90 Mcg/Act Aer 2 Puff INH Q4-6H PRN 108 mcg/actuation Colace (Docusate Sodium) 100 Mg Capsule 200 Mg PO HS Amiodarone (Amiodarone HCl) 200 Mg Tab 200 Mg PO DAILY Nasonex Nasal [place] (Mometasone Furoate) 50 Mcg/Act Naspr 2 [place] EACH NARE DAILY PRN Hydrocodone-Acetaminophen 5-325 mg Tab 1 Tab PO Q6H PRN Proair Hfa 8.5 GM Inh (Albuterol Sulfate) 90 Mcg/Act Aer 2 Puff INH Q4-6H PRN 108 mcg/actuation Lisinopril 10 Mg Tab 10 Mg PO DAILY@1600 Probiotic (Lactobacillus Acidophilus) 1 Cap Cap 1 Cap PO DAILY Premarin (Estrogens Conjugated) 0.625 Mg Tab 0.625 Mg PO DAILY K-Tab (Potassium Chloride) 10 Meq Tab 10 Meq PO HS Synthroid (Levothyroxine Sodium) 50 Mcg Tab 50 Mcg PO DAILY Eliquis (Apixaban) 5 Mg Tab 5 Mg PO BID Norvasc (Amlodipine Besylate) 5 Mg Tab 5 Mg PO DAILY Lasix (Furosemide) 20 Mg Tab 20 Mg PO DAILY Atenolol 25 Mg Tab 25 Mg PO DAILY Nanci Allergy (Fexofenadine HCl) 180 Mg Tab 180 Mg PO DAILY Review of Systems Except as stated in HPI: all other systems reviewed are Neg General / Constitutional: Positive: Chills, Other (Sweats) HENT: No: Headaches, Lightheadedness Cardiovascular: No: Chest Pain or Discomfort, Palpitations Respiratory: Positive: Cough (Productive yellow phlegm), Shortness of Breath, Wheezing Gastrointestinal: Positive: Nausea, Vomiting, No: Diarrhea, Abdominal Pain Genitourinary: No: Frequency, Dysuria Musculoskeletal: No: Weakness Neurologic: No: Weakness, Dizziness, Headache Physical Exam Narrative GENERAL: Well developed well-nourished female actively coughing with mild to moderate shortness of breath in the room. SKIN: Focused skin assessment warm/dry. HEAD: Atraumatic. Normocephalic. EYES: No scleral icterus. No injection or drainage. ENT: No nasal bleeding or discharge. Mucous membranes pink and moist. NECK: Trachea midline. Supple. CARDIOVASCULAR: Regular rate and rhythm. No murmur appreciated. RESPIRATORY: Diffuse expiratory wheezes in the bilateral lung goode. Coarse rhonchi in the mid and upper lung goode. No rales appreciated. GASTROINTESTINAL: Abdomen soft, non-tender, nondistended. MUSCULOSKELETAL: No obvious deformities. No clubbing. No cyanosis. No edema. NEUROLOGICAL: Awake and alert. No obvious cranial nerve deficits. Motor grossly within normal limits. Normal speech. Data Data Last Documented VS Vital Signs Date Time Temp Pulse Resp B/P (MAP) Pulse Ox O2 Delivery O2 Flow Rate FiO2 12/21/17 06:27 97.8 79 18 149/69 (95) 95 Orders Orders Complete Blood Count With Diff (12/21/17 06:44) Comprehensive Metabolic Panel (12/21/17 06:44) Ckmb (Isoenzyme) Profile (12/21/17 06:44) Troponin I (12/21/17 06:44) Iv Access Insert/Monitor (12/21/17 06:44) Electrocardiogram (12/21/17 06:44) Ecg Monitoring (12/21/17:44) Oximetry (12/21/17 06:44) Oxygen Administration (12/21/17 06:44) Chest, Single Ap (12/21/17 06:44) Sodium Chloride 0.9% Flush (Ns Flush) (12/21/17 06:45) Methylprednisolone So Succ Inj (Solumedr (12/21/17 06:45) Albuterol-Ipratropium Neb (Duoneb Neb) (12/21/17 06:45) Albuterol Neb (Albuterol Neb) (12/21/17 06:45) Ondansetron Inj (Zofran Inj) (12/21/17 07:00) MDM Medical Decision Making Medical Screen Exam Complete: Yes Emergency Medical Condition: Yes Differential Diagnosis Bronchitis versus pneumonia versus COPD exacerbation versus gastroenteritis Narrative Course 86-year-old female presents today with complaints of cough congestion. Patient also reports wheezing and shortness of breath. Patient also has had nausea vomiting throughout the night with dry heaves this morning. She is currently receiving albuterol nebulizers with the first 1 with Atrovent. She is will be given Solu-Medrol 125 mg IV 1 dose. She was seen yesterday at an urgent care and diagnosed with bronchitis. She was prescribed doxycycline and steroids. She has not taken her steroids today. Labs and x-ray are pending at this time. She will be signed out to Dr. Lupe Ya, physician replaced me at change of shift. Disposition will be per Dr. Ya. Diagnosis Primary Impression: Upper respiratory infection Additional Impression: Nausea & vomiting Kale Serrano MD Dec 21, 2017 06:53
[2017-12-21] MEDS: RESP: ALBUTEROL 2.5 MG/3 ML NEB (SCH) INH (06:59)
[2017-12-21] MEDS ORDERED: ONDANSETRON HCL 4 MG/2 ML VIAL IV PUSH ONE (07:00)
--- NOTE | 2017-12-21 07:12 | RADRPT ---
EXAM DATE/TIME: 12/21/2017 06:47 [facility] COMPARISON: CHEST SINGLE AP, June 07, 2017, 16:46. INDICATIONS : Shortness of breath. MEDICAL HISTORY : Congestive heart failure. Asthma. SURGICAL HISTORY : Pacemaker. Cardiac cath. ENCOUNTER: Initial ACUITY: 1 day PAIN SCORE: 0/10 LOCATION: Bilateral chest FINDINGS: A single view of the chest demonstrates the lungs to be symmetrically aerated without evidence of mas s, infiltrate or effusion. The cardiomediastinal contours are unremarkable. Osseous structures are intact. There is a pacemaker overlying the left chest. CONCLUSION: No acute disease. No significant change has occurred. Atul Hsu MD on December 21, 2017 at 7:04 Board Certified Radiologist. This report was verified electronically.
[2017-12-21 07:21] LABS: AUTOMATED NEUTROPHIL # 2.8 TH/MM3 (1.8-7.7); BASOPHIL % 0.6 % (0.0-2.0); EOSINOPHIL % 0.4 % (0.0-4.0); HEMATOCRIT 34.7 % (35.0-46.0); HEMOGLOBIN 11.1 GM/DL (11.6-15.3); LYMPHOCYTE # 0.6 TH/MM3 (1.0-4.8); MEAN CELL VOLUME 91.3 FL (80.0-100.0); MEAN CORPUSCULAR HEMOGLOBIN 29.3 PG (27.0-34.0); MEAN PLATELET VOLUME 7.2 FL (7.0-11.0); MONO % 17.6 % (0.0-8.0); MONOCYTE # 0.7 TH/MM3 (0-0.9); NEUT % 66.4 % (16.0-70.0); PLATELET COUNT 169 TH/MM3 (150-450); RED CELL DISTRIBUTION WIDTH 12.6 % (11.6-17.2); WHITE BLOOD COUNT 4.1 TH/MM3 (4.0-11.0)
[2017-12-21 07:29] LABS: CHLORIDE 97 MEQ/L (98-107); SODIUM (NA) 128 MEQ/L (136-145)
[2017-12-21 07:32] LABS: CALCIUM 8.1 MG/DL (8.5-10.1)
[2017-12-21 07:33] LABS: ALBUMIN 2.9 GM/DL (3.4-5.0); BICARBONATE 23.1 MEQ/L (21.0-32.0); BLOOD UREA NITROGEN 12 MG/DL (7-18); GLUCOSE,RANDOM 95 MG/DL (74-106)
[2017-12-21 07:36] LABS: ALT (GPT) 20 U/L (10-53); AST (GOT) 23 U/L (15-37); CREATININE 0.76 MG/DL (0.50-1.00); GLOMERULAR FILTRATION RATE 72 ML/MIN (>89)
[2017-12-21 07:37] LABS: TOTAL BILIRUBIN ADULT 0.3 MG/DL (0.2-1.0); TOTAL PROTEIN 6.3 GM/DL (6.4-8.2)
[2017-12-21 07:39] LABS: ALKALINE PHOSPHATASE 65 U/L (45-117)
[2017-12-21 07:41] LABS: TROPONIN I LESS THAN 0.02 NG/ML (0.02-0.05)
[2017-12-21] MEDS ORDERED: RESP: ALBUTEROL 2.5 MG/IPRATROPIUM 0.5 MG NEB (SCH) NEB ONE (08:15)
--- NOTE | 2017-12-21 08:16 | PD ---
Physical Exam Narrative GENERAL: 86-year-old female with frequent cough noted SKIN: Focused skin assessment warm/dry. HEAD: Atraumatic. Normocephalic. EYES: Pupils equal and round. No scleral icterus. No injection or drainage. ENT: No nasal bleeding or discharge. Mucous membranes pink and moist. NECK: Trachea midline. CARDIOVASCULAR: Regular rate and rhythm. RESPIRATORY: No accessory muscle use. Expiratory wheezing bilaterally. GASTROINTESTINAL: Abdomen nondistended. MUSCULOSKELETAL: No obvious deformities. NEUROLOGICAL: Awake and alert. Moves all extremities. Normal speech. PSYCHIATRIC: Appropriate mood and affect; insight and judgment normal. Data Data Last Documented VS Vital Signs Date Time Temp Pulse Resp B/P (MAP) Pulse Ox O2 Delivery O2 Flow Rate FiO2 12/21/17 08:35 96 Nasal Cannula 2.00 12/21/17 08:25 12/21/17 08:18 76 16 12/21/17 07:27 97.6 Orders Orders Complete Blood Count With Diff (12/21/17 06:44) Comprehensive Metabolic Panel (12/21/17 06:44) Ckmb (Isoenzyme) Profile (12/21/17 06:44) Troponin I (12/21/17 06:44) Iv Access Insert/Monitor (12/21/17 06:44) Electrocardiogram (12/21/17 06:44) Ecg Monitoring (12/21/17 06:44) Oximetry (12/21/17 06:44) Oxygen Administration (12/21/17 06:44) Chest, Single Ap (12/21/17 06:44) Sodium Chloride 0.9% Flush (Ns Flush) (12/21/17 06:45) Methylprednisolone So Succ Inj (Solumedr (12/21/17 06:45) Albuterol-Ipratropium Neb (Duoneb Neb) (12/21/17 06:45) Albuterol Neb (Albuterol Neb) (12/21/17 06:45) Ondansetron Inj (Zofran Inj) (12/21/17 07:00) CKMB (12/21/17 07:15) CKMB% (12/21/17 07:15) Albuterol-Ipratropium Neb (Duoneb Neb) (12/21/17 08:15) Influenzae A/B Antigen (12/21/17 08:16) Admit Order (Ed Use Only) (12/21/17 09:20) Labs Laboratory Tests Test 12/21/17 07:15 White Blood Count 4.1 TH/MM3 Red Blood Count 3.80 MIL/MM3 Hemoglobin 11.1 GM/DL Hematocrit 34.7 % Mean Corpuscular Volume 91.3 FL Mean Corpuscular Hemoglobin 29.3 PG Mean Corpuscular Hemoglobin Concent 32.0 % Red Cell Distribution Width 12.6 % Platelet Count 169 TH/MM3 Mean Platelet Volume 7.2 FL Neutrophils (%) (Auto) 66.4 % Lymphocytes (%) (Auto) 15.0 % Monocytes (%) (Auto) 17.6 % Eosinophils (%) (Auto) 0.4 % Basophils (%) (Auto) 0.6 % Neutrophils # (Auto) 2.8 TH/MM3 Lymphocytes # (Auto) 0.6 TH/MM3 Monocytes # (Auto) 0.7 TH/MM3 Eosinophils # (Auto) 0.0 TH/MM3 Basophils # (Auto) 0.0 TH/MM3 CBC Comment DIFF FINAL Differential Comment Blood Urea Nitrogen 12 MG/DL Creatinine 0.76 MG/DL Random Glucose 95 MG/DL Total Protein 6.3 GM/DL Albumin 2.9 GM/DL Calcium Level 8.1 MG/DL Alkaline Phosphatase 65 U/L Aspartate Amino Transf (AST/SGOT) 23 U/L Alanine Aminotransferase (ALT/SGPT) 20 U/L Total Bilirubin 0.3 MG/DL Sodium Level 128 MEQ/L Potassium Level 4.1 MEQ/L Chloride Level 97 MEQ/L Carbon Dioxide Level 23.1 MEQ/L Anion Gap 8 MEQ/L Estimat Glomerular Filtration Rate 72 ML/MIN Total Creatine Kinase 131 U/L Creatine Kinase MB 1.4 NG/ML Troponin I LESS THAN 0.02 NG/ML [facility] Supervised Visit with KIMBERLEE: No Interpretation(s) CBC & BMP Diagram 12/21/17 07:15 Total Protein 6.3 L, Albumin 2.9 L, Calcium Level 8.1 L, Alkaline Phosphatase 65 , Aspartate Amino Transf (AST/SGOT) 23, Alanine Aminotransferase (ALT/SGPT) 20, Total Bilirubin 0.3 cxr no acute Narrative Course Signed over to me to follow workup and reevaluate. Lab work shows hyponatremia of 128 with prior of 131. Otherwise no emergent findings. Chest x-ray shows no signs of pneumonia. Patient is on outpatient doxycycline and prednisone but is had vomiting. She states that she is not feeling better and she is still wheezing on recheck. We'll repeat DuoNeb treatment in place in observation for asthma exacerbation. Nursing staff states at 820 patient with rest decrease her oxygen level to 89%. She was placed on 2 L. Influenza is A+, patient is outside window for Tamiflu Physician Communication Physician Communication dr tristan agrees to admit Diagnosis Primary Impression: Asthma Qualified Codes: J45.901 - Unspecified asthma with (acute) exacerbation Additional Impressions: Nausea & vomiting Qualified Codes: R11.2 - Nausea with vomiting, unspecified Influenza A Admitting Information Admitting Physician Requests: Observation Lupe Ya MD Dec 21, 2017 08:16
[2017-12-21] MEDS ORDERED: FLUTICASONE PROPIONATE 50 MCG/ACT 16 GM NASAL SPRAY EACH NARE PRN (09:30)
[2017-12-21] MEDS ORDERED: ONDANSETRON HCL 4 MG/2 ML VIAL IVP PRN (09:30)
[2017-12-21] MEDS ORDERED: MAGNESIUM HYDROXIDE SUSP 30 ML CUP PO PRN (09:30)
[2017-12-21] MEDS ORDERED: traMADol HCL 50 MG TAB PO PRN ×2 (09:30)
[2017-12-21] MEDS ORDERED: ACETAMINOPHEN/HYDROcodone 325 MG/5 MG TAB PO PRN ×2 (09:30→12:00)
[2017-12-21] MEDS ORDERED: NALOXONE HCL 0.4 MG/ML AMP IV PUSH PRN (09:30)
[2017-12-21] MEDS: SODIUM CHLOR 0.9% 1000 ML INJ 1,000 ML IV SCH ×2 (10:32→21:22)
[2017-12-21] MEDS ORDERED: ACETAMINOPHEN/HYDROcodone 325 MG/10 MG TAB PO PRN (12:00)
[2017-12-21] MEDS: methylPREDNISolone SOD SUCC 40 MG/1 ML VIAL IV PUSH SCH ×2 (14:13→21:22)
--- NOTE | 2017-12-21 15:24 | HHI.HP ---
[facility] Service [facility] Primary Care Physician Mya Zamora MD Admission Diagnosis asthma exacerbation, influenza A Diagnoses: Travel History International Travel<30 Days: No Contact w/Intl Traveler <30 Da: No Traveled to Known Affected Are: No History of Present Illness Mrs. Majano is an 86 year old female. She has asthma at baseline which is generally well controlled. The past 3 days she has been dealing with what she thought was a bronchitis. Respiratory status has been gradually worsening. This morning she awoke and thought she might due to the degree of her respiratory distress, so she came into the emergency department. She has tested positive for influenza here. She is also hypoxic. Oxygen was started and has helped. Respiratory treatments provided and patient is feeling slightly better. Hyponatremia is present but may be reactive. She does not have a history of problems with hyponatremia. Baseline she has hypertension and arrhythmia. No other complaints today. Review of Systems Constitutional: COMPLAINS OF: Fatigue, DENIES: Chills Eyes: DENIES: Diplopia, Eye inflammation, Eye pain Ears, nose, mouth, throat: DENIES: Hearing loss, Vertigo, Nasal discharge Respiratory: COMPLAINS OF: Cough, Wheezing, Shortness of breath Cardiovascular: COMPLAINS OF: Dyspnea on Exertion, DENIES: Chest pain, Palpitations, Syncope Gastrointestinal: DENIES: Abdominal pain, Black stools, Bloody stools, Constipation Musculoskeletal: COMPLAINS OF: Muscle aches, Stiffness, DENIES: Joint pain Integumentary: DENIES: Abnormal pigmentation, Pruritus, Rash, Nail changes Hematologic/lymphatic: DENIES: Bruising, Lymphadenopathy Immunologic/allergic: DENIES: Eczema, Urticaria Neurologic: DENIES: Abnormal gait, Headache, Paresthesias Psychiatric: DENIES: Anxiety, Confusion, Hallucinations Past Family Social History Past Medical History Asthma Hypertension Atrial fibrillation Right bundle-branch block Osteoarthritis Coronary artery disease Hyperlipidemia Congestive heart failure Irritable bowel syndrome Gastroesophageal reflux disease Hypothyroidism Lumbar stenosis Pacemaker Past Surgical History Pacemaker placement (Medtronic) Partial colectomy Polyp removal Laparoscopic cholecystectomy Appendectomy Right renal artery stent placement Bilateral cataract surgery Unilateral nephrectomy Abdominal hysterectomy Lumbar fusion Lumbar laminectomy Tonsillectomy Nasal surgery Reported Medications Reported Meds & Active Scripts Active Reported Doxycycline Hyclate 100 Mg Cap 100 Mg PO BID Symbicort Inh (Budesonide/Formoterol Fumarate) 160-4.5 Mcg/Act Aero 1 Puff INH Q12HR Proair Hfa 8.5 GM Inh (Albuterol Sulfate) 90 Mcg/Act Aer 2 Puff INH Q4-6H PRN 108 mcg/actuation Colace (Docusate Sodium) 100 Mg Capsule 200 Mg PO HS Amiodarone (Amiodarone HCl) 200 Mg Tab 200 Mg PO DAILY Nasonex Nasal [place] (Mometasone Furoate) 50 Mcg/Act Naspr 2 [place] EACH NARE DAILY PRN Hydrocodone-Acetaminophen 5-325 mg Tab 1 Tab PO Q6H PRN Proair Hfa 8.5 GM Inh (Albuterol Sulfate) 90 Mcg/Act Aer 2 Puff INH Q4-6H PRN 108 mcg/actuation Lisinopril 10 Mg Tab 10 Mg PO DAILY@1600 Probiotic (Lactobacillus Acidophilus) 1 Cap Cap 1 Cap PO DAILY Premarin (Estrogens Conjugated) 0.625 Mg Tab 0.625 Mg PO DAILY K-Tab (Potassium Chloride) 10 Meq Tab 10 Meq PO HS Synthroid (Levothyroxine Sodium) 50 Mcg Tab 50 Mcg PO DAILY Eliquis (Apixaban) 5 Mg Tab 5 Mg PO BID Norvasc (Amlodipine Besylate) 5 Mg Tab 5 Mg PO DAILY Lasix (Furosemide) 20 Mg Tab 20 Mg PO DAILY Atenolol 25 Mg Tab 25 Mg PO DAILY Nanci Allergy (Fexofenadine HCl) 180 Mg Tab 180 Mg PO DAILY Allergies: Coded Allergies: Sulfa (Sulfonamide Antibiotics) (Unverified Allergy, Severe, Rash, 06/07/17 ) adhesive (Unverified Allergy, Severe, RASH, BLISTERS, 06/07/17) cetylpyridinium chloride (Unverified Allergy, Severe, throat closes, ) levofloxacin (Unverified Allergy, Severe, Nausea/Vomiting, 06/07/17) penicillin G (Unverified Allergy, Severe, Rash, SWELLING, 06/07/17) latex (Unverified Allergy, Mild, Rash, 06/07/17) diclofenac (Unverified Adverse Reaction, Severe, Rash, 06/07/17) etodolac (Unverified Adverse Reaction, Severe, Rash, 06/07/17) flurbiprofen (Unverified Adverse Reaction, Severe, Rash, 06/07/17) ibuprofen (Unverified Adverse Reaction, Severe, Rash, 06/07/17) indomethacin (Unverified Adverse Reaction, Severe, Rash, 06/07/17) ketoprofen (Unverified Adverse Reaction, Severe, Rash, 06/07/17) ketorolac (Unverified Adverse Reaction, Severe, Rash, 06/07/17) naproxen (Unverified Adverse Reaction, Severe, Rash, 06/07/17) oxaprozin (Unverified Adverse Reaction, Severe, Rash, 06/07/17) Uncoded Allergies: TEGADERM (Allergy, Severe, RASH, 10/24/14) Active Ordered Medications Administered Medications Medications (Trade) Dose Ordered Sig/Angelica Route PRN Reason Start Time Stop Time Status Last Admin Dose Admin Sodium Chloride 1,000 ml @ 100 mls/hr Q10H IV 12/21/17 09:20 12/21/17 10:32 Methylprednisolone Sodium Succinate (SoluMEDROL INJ) 40 mg Q8HR IV PUSH 12/21/17 14:00 12/21/17 14:13 Family History Congestive heart failure in mother Coronary artery disease in father Social History No history of smoking No history of alcohol abuse No history of illicit drug abuse Physical Exam Vital Signs Vital Signs Date Time Temp Pulse Resp B/P (MAP) Pulse Ox O2 Delivery O2 Flow Rate FiO2 12/21/17 13:57 12/21/17 13:16 62 18 123/60 (81) 94 Nasal Cannula 2.00 12/21/17 09:34 79 20 127/58 (81) 96 Room Air 12/21/17 08:35 96 Nasal Cannula 2.00 12/21/17 08:28 94 Nasal Cannula 2.00 12/21/17 08:25 89 Room Air 12/21/17 08:18 76 16 140/62 (88) 93 Room Air 12/21/17 07:27 97.6 88 16 153/65 (94) 96 Room Air 12/21/17 07:15 96 Room Air 12/21/17 06:52 20 96 Room Air 12/21/17 06:35 68 18 191/73 (112) 96 12/21/17 06:27 97.8 79 18 149/69 (95) 95 Physical Exam GENERAL: This is a well-nourished, well-developed patient, in no apparent distress. SKIN: No rashes, ecchymoses or lesions. Cool and dry. HEAD: Atraumatic. Normocephalic. No temporal or scalp tenderness. EYES: Pupils equal round and reactive. Extraocular motions intact. No scleral icterus. No injection or drainage. ENT: Nose without bleeding, purulent drainage or septal hematoma. Throat without erythema, tonsillar hypertrophy or exudate. Uvula midline. Airway patent. NECK: Trachea midline. No JVD or lymphadenopathy. Supple, nontender, no meningeal signs. CARDIOVASCULAR: Regular rate and rhythm without murmurs, gallops, or rubs. RESPIRATORY: Clear to auscultation. Breath sounds equal bilaterally. No wheezes , rales, or rhonchi. GASTROINTESTINAL: Abdomen soft, non-tender, nondistended. No hepato-splenomegaly , or palpable masses. No guarding. MUSCULOSKELETAL: Extremities without clubbing, cyanosis, or edema. No joint tenderness, effusion, or edema noted. No calf tenderness. Negative Homans sign bilaterally. NEUROLOGICAL: Awake and alert. Cranial nerves II through XII intact. Motor and sensory grossly within normal limits. Five out of 5 muscle strength in all muscle groups. Normal speech. Laboratory Laboratory Tests Test 12/21/17 07:15 White Blood Count 4.1 Red Blood Count 3.80 Hemoglobin 11.1 Hematocrit 34.7 Mean Corpuscular Volume 91.3 Mean Corpuscular Hemoglobin 29.3 Mean Corpuscular Hemoglobin Concent 32.0 Red Cell Distribution Width 12.6 Platelet Count 169 Mean Platelet Volume 7.2 Neutrophils (%) (Auto) 66.4 Lymphocytes (%) (Auto) 15.0 Monocytes (%) (Auto) 17.6 Eosinophils (%) (Auto) 0.4 Basophils (%) (Auto) 0.6 Neutrophils # (Auto) 2.8 Lymphocytes # (Auto) 0.6 Monocytes # (Auto) 0.7 Eosinophils # (Auto) 0.0 Basophils # (Auto) 0.0 CBC Comment DIFF FINAL Differential Comment Blood Urea Nitrogen 12 Creatinine 0.76 Random Glucose 95 Total Protein 6.3 Albumin 2.9 Calcium Level 8.1 Alkaline Phosphatase 65 Aspartate Amino Transf (AST/SGOT) 23 Alanine Aminotransferase (ALT/SGPT) 20 Total Bilirubin 0.3 Sodium Level 128 Potassium Level 4.1 Chloride Level 97 Carbon Dioxide Level 23.1 Anion Gap 8 Estimat Glomerular Filtration Rate 72 Total Creatine Kinase 131 Creatine Kinase MB 1.4 Troponin I LESS THAN 0.02 Date/Time Source Procedure Growth Status 12/21/17 08:44 Nasal Aspirate Influenza Types A,B Antigen (SHANIQUE) - Final Positive For Flu A Antigen Complete Result Diagram: 12/21/1715 12/21/1715 Imaging Last Impressions Chest X-Ray 12/21/1744 Signed Impressions: Service Date/Time: Thursday, December 21, 2017 06:47 - CONCLUSION: No acute disease. No significant change has occurred. MD Gianna Gaines VTE Risk Assessment Gianna VTE Risk Assessment: No/Low Risk (score <= 1) Caprini Risk Assessment Model Point Value = 1 Point Value = 2 Point Value = 3 Point Value = 5 Age 41-60 Minor surgery BMI > 25 kg/m2 Swollen legs Varicose veins or History of unexplained or recurrent spontaneous Oral contraceptives or hormone replacement Sepsis (< 1 month) Serious lung disease, including pneumonia (< 1 month) Abnormal pulmonary function Acute myocardial infarction Congestive heart failure (< 1 month) History of inflammatory bowel disease Medical patient at bed rest Age 61-74 Arthroscopic surgery Major open surgery (> 45 min) Laparoscopic surgery (> 45 min) Malignancy Confined to bed (> 72 hours) Immobilizing plaster cast Central venous access Age >= 75 History of VTE Family history of VTE Factor V Leiden Prothrombin [id number] Lupus anticoagulant Anticardiolipin antibodies Elevated serum homocysteine Heparin-induced thrombocytopenia Other congenital or acquired thrombophilia Stroke (< 1 month) Elective arthroplasty Hip, pelvis, or leg fracture Acute spinal cord injury (< 1 month) Prophylaxis Regimen Total Risk Factor Score Risk Level Prophylaxis Regimen 0-1 Low Early ambulation 2 Moderate Order ONE of the following: *Sequential Compression Device (SCD) *Heparin 5000 units SQ BID 3-4 Higher Order ONE of the following medications: *Heparin 5000 units SQ TID *Enoxaparin/Lovenox 40 mg SQ daily (WT < 150 kg, CrCl > 30 mL/min) *Enoxaparin/Lovenox 30 mg SQ daily (WT < 150 kg, CrCl > 10-29 mL/min) *Enoxaparin/Lovenox 30 mg SQ BID (WT < 150 kg, CrCl > 30 mL/min) AND/OR *Sequential Compression Device (SCD) 5 or more Highest Order ONE of the following medications: *Heparin 5000 units SQ TID (Preferred with Epidurals) *Enoxaparin/Lovenox 40 mg SQ daily (WT < 150 kg, CrCl > 30 mL/min) *Enoxaparin/Lovenox 30 mg SQ daily (WT < 150 kg, CrCl > 10-29 mL/min) *Enoxaparin/Lovenox 30 mg SQ BID (WT < 150 kg, CrCl > 30 mL/min) AND *Sequential Compression Device (SCD) Assessment and Plan Problem List: (1) Hyponatremia ICD Code: E87.1 - Hypo-osmolality and hyponatremia (2) Influenza A ICD Code: J10.1 - Influenza due to other identified influenza virus with other respiratory manifestations Status: Acute (3) Upper respiratory infection ICD Code: J06.9 - Acute upper respiratory infection, unspecified Status: Acute Assessment and Plan 86-year-old female admitted secondary to acute respiratory distress and hypoxia related to influenza and asthma exacerbation. Hyponatremia also present. Asthma exacerbation Hypoxia Acute respiratory distress Influenza Approximate 72 hours after onset of symptoms No benefit from Tamiflu at this point Continue breathing treatments as needed Continue steroids Oxygen support Monitor for improvement Wean oxygen as tolerated Consider antibiotics if needed for signs of bacterial infection Hyponatremia No prior history IV hydration with normal saline Follow sodium levels Likely reactive Hypertension Continue baseline treatment Follow blood pressures Adjust treatments as needed Hyperlipidemia Continue present treatment Follow as an outpatient Atrial fibrillation Right bundle-branch block Coronary artery disease Congestive heart failure Pacemaker No exacerbation Follow on telemetry Continue baseline treatments No chest pain Continue Eliquis Osteoarthritis Irritable bowel syndrome Gastroesophageal reflux disease Hypothyroidism Lumbar stenosis No exacerbations of these conditions Follow clinically for now DVT prophylaxis Continue baseline Eliquis Problem Qualifiers (1) Upper respiratory infection: Qualified Codes: J06.9 - Acute upper respiratory infection, unspecified Jakub Grubbs MD Dec 21, 2017 15:24
[2017-12-21] MEDS: LISINOPRIL 10 MG TAB PO SCH (15:42)
--- NOTE | 2017-12-21 16:29 | EKG ---
Date Performed: 12/21/2017 Time Performed: 06:57:41 PTAGE: 86 years EKG: ELECTRONIC ATRIAL PACEMAKER INTRAVENTRICULAR CONDUCTION DELAY ABNORMAL ECG PREVIOUS TRACING : 09/25/2016 22.05 Atrial pacing is new since prior tracing. Intraventricular conduction has improved. DOCTOR: Ranjit Livingston Interpretating Date/Time 12/21/2017 16:29:09
[2017-12-21] MEDS: BUDESONIDE-FORMOTEROL 160/4.5 MCG INHALER INH SCH (20:04)
[2017-12-21] MEDS: DOCUSATE SODIUM 100 MG CAP PO SCH (20:04)
[2017-12-21] MEDS: SODIUM CHLORIDE 0.9% FLUSH 10 ML FLUSH IV FLUSH SCH (20:05)
[2017-12-21] MEDS: POTASSIUM CHLORIDE 10 MEQ CONTROLLED RELEASE TAB PO SCH (20:05)
[2017-12-21] MEDS: APIXABAN 5 MG TABLET PO SCH (20:05)
[2017-12-21] MEDS: SODIUM CHLORIDE 0.9% FLUSH 10 ML FLUSH IV FLUSH PRN (21:22)
[2017-12-21] MEDS: RESP: ALBUTEROL 2.5 MG/3 ML NEB (PRN) NEB (22:32)
[2017-12-21] MEDS: guaiFENesin/DEXTROMETHORPHAN 200 MG/20 MG/10 ML CUP PO PRN (22:43)
[2017-12-22] MEDS: LEVOTHYROXINE SODIUM 50 MCG TAB PO SCH (05:07)
[2017-12-22] MEDS: SODIUM CHLORIDE 0.9% FLUSH 10 ML FLUSH IV FLUSH PRN (05:07)
[2017-12-22] MEDS: methylPREDNISolone SOD SUCC 40 MG/1 ML VIAL IV PUSH SCH ×3 (05:07→21:35)
[2017-12-22] MEDS: guaiFENesin/DEXTROMETHORPHAN 200 MG/20 MG/10 ML CUP PO PRN ×3 (05:07→21:39)
[2017-12-22] MEDS: RESP: ALBUTEROL 2.5 MG/3 ML NEB (PRN) NEB ×4 (05:24→21:03)
[2017-12-22] MEDS: SODIUM CHLOR 0.9% 1000 ML INJ 1,000 ML IV SCH ×4 (06:38→12:49)
[2017-12-22 07:07] LABS: AUTOMATED NEUTROPHIL # 6.1 TH/MM3 (1.8-7.7); BASOPHIL % 0.1 % (0.0-2.0); EOSINOPHIL % 0.1 % (0.0-4.0); HEMATOCRIT 34.7 % (35.0-46.0); LYMPH % 12.2 % (9.0-44.0); LYMPHOCYTE # 0.9 TH/MM3 (1.0-4.8); MEAN CELL VOLUME 91.6 FL (80.0-100.0); MEAN CORPUSCULAR HEMOGLOBIN 31.7 PG (27.0-34.0); MEAN CORPUSCULAR HGB CONC 34.6 % (32.0-36.0); MEAN PLATELET VOLUME 8.1 FL (7.0-11.0); MONO % 4.6 % (0.0-8.0); MONOCYTE # 0.3 TH/MM3 (0-0.9); PLATELET COUNT 160 TH/MM3 (150-450); RED BLOOD COUNT 3.78 MIL/MM3 (4.00-5.30); RED CELL DISTRIBUTION WIDTH 13.6 % (11.6-17.2); WHITE BLOOD COUNT 7.3 TH/MM3 (4.0-11.0)
[2017-12-22 07:33] LABS: CHLORIDE 104 MEQ/L (98-107); SODIUM (NA) 134 MEQ/L (136-145)
[2017-12-22 07:40] LABS: ALBUMIN 2.8 GM/DL (3.4-5.0); CALCIUM 8.4 MG/DL (8.5-10.1); GLUCOSE,RANDOM 141 MG/DL (74-106)
[2017-12-22 07:41] LABS: BICARBONATE 21.8 MEQ/L (21.0-32.0); BLOOD UREA NITROGEN 14 MG/DL (7-18)
[2017-12-22 07:43] LABS: ALT (GPT) 27 U/L (10-53); AST (GOT) 31 U/L (15-37); CREATININE 0.76 MG/DL (0.50-1.00); GLOMERULAR FILTRATION RATE 72 ML/MIN (>89)
[2017-12-22 07:45] LABS: TOTAL BILIRUBIN ADULT 0.3 MG/DL (0.2-1.0); TOTAL PROTEIN 6.6 GM/DL (6.4-8.2)
[2017-12-22 07:46] LABS: ALKALINE PHOSPHATASE 66 U/L (45-117)
[2017-12-22 07:50] VITALS: BP 161/79; PULSE 68; RESP 20; TEMP 96.1; O2SAT 96
[2017-12-22] MEDS: ATENOLOL 25 MG TAB PO SCH (08:04)
[2017-12-22] MEDS: APIXABAN 5 MG TABLET PO SCH ×2 (08:04→21:38)
[2017-12-22] MEDS: LACTOBACILLUS ACIDOPHILUS TAB PO SCH (08:04)
[2017-12-22] MEDS: AMIODARONE 200 MG TAB PO SCH (08:04)
[2017-12-22] MEDS: FUROSEMIDE 20 MG TAB PO SCH (08:04)
[2017-12-22] MEDS: amLODIPine BESYLATE 5 MG TAB PO SCH (08:05)
[2017-12-22] MEDS: LORATADINE 10 MG TAB PO SCH (08:05)
[2017-12-22] MEDS: BUDESONIDE-FORMOTEROL 160/4.5 MCG INHALER INH SCH ×2 (08:11→21:44)
[2017-12-22] MEDS: SODIUM CHLORIDE 0.9% FLUSH 10 ML FLUSH IV FLUSH SCH ×2 (08:12→21:37)
[2017-12-22] MEDS: ESTROGENS CONJUGATED 0.625 MG TAB PO SCH (09:00)
[2017-12-22 09:47] VITALS: O2SAT 97
[2017-12-22 11:50] VITALS: BP 134/71; PULSE 67; RESP 20; TEMP 96.7; O2SAT 96
[2017-12-22 15:50] VITALS: BP 140/68; PULSE 67; RESP 20; TEMP 96.7; O2SAT 97
[2017-12-22] MEDS: LISINOPRIL 10 MG TAB PO SCH (16:00)
--- NOTE | 2017-12-22 16:19 | HHI.PR ---
Subjective Remarks Patient feels worse today. She is having respiratory distress when seen. Oxygen levels are stable. She is at high risk for re-exacerbation of her asthma in the setting of influenza. Objective Vital Signs Date Time Temp Pulse Resp B/P (MAP) Pulse Ox O2 Delivery O2 Flow Rate FiO2 12/22/17 13:48 20 12/22/17 11:50 96.7 67 20 134/71 (92) 96 12/22/17 09:47 97 21 12/22/17 07:50 96.1 68 20 161/79 (106) 96 12/21/17 22:35 98 Nasal Cannula 2.00 12/21/17 20:00 97.9 61 17 140/65 (90) 97 I/O 12/21/17 12/21/17 12/21/17 12/22/17 12/22/17 12/22/17 07:00 15:00 23:00 07:00 15:00 23:00 Intake Total 1575 ml 1000 ml Balance 1575 ml 1000 ml Intake Oral 575 ml IV Total 1000 ml 1000 ml # Voids 3 2 Result Diagram: 12/22/17 0540 12/22/17 0540 Objective Remarks GENERAL: NAD, A&Ox3 HEAD: Normocephalic. NECK: Supple, trachea midline. No lymphadenopathy. EYES: No scleral icterus. No injection or drainage. CARDIOVASCULAR: Regular rate and rhythm without murmurs, gallops, or rubs. RESPIRATORY: Breath sounds equal bilaterally. No accessory muscle use. Bilateral wheezing and rhonchi. GASTROINTESTINAL: Abdomen soft, non-tender, nondistended. MUSCULOSKELETAL: No cyanosis, or edema. SKIN: Warm and dry. NEURO: No focal neurological deficitis. A/P Problem List: (1) Influenza A ICD Code: J10.1 - Influenza due to other identified influenza virus with other respiratory manifestations Status: Acute (2) Upper respiratory infection ICD Code: J06.9 - Acute upper respiratory infection, unspecified Status: Acute Assessment and Plan 86-year-old female admitted secondary to acute respiratory distress and hypoxia related to influenza and asthma exacerbation. Hyponatremia also present. Asthma exacerbation Hypoxia Acute respiratory distress Influenza Improving but risk for re-exacerbation remains No benefit from Tamiflu at this point Continue breathing treatments as needed Continue steroids Oxygen support Monitor for improvement Wean oxygen as tolerated Consider antibiotics if needed for signs of bacterial infection Hyponatremia Improved No prior history IV hydration with normal saline Follow sodium levels Likely reactive Hypertension Continue baseline treatment Follow blood pressures Adjust treatments as needed Hyperlipidemia Continue present treatment Follow as an outpatient Atrial fibrillation Right bundle-branch block Coronary artery disease Congestive heart failure Pacemaker No exacerbation Follow on telemetry Continue baseline treatments No chest pain Continue Eliquis Osteoarthritis Irritable bowel syndrome Gastroesophageal reflux disease Hypothyroidism Lumbar stenosis No exacerbations of these conditions Follow clinically for now DVT prophylaxis Continue baseline Eliquis Problem Qualifiers (1) Upper respiratory infection: Qualified Codes: J06.9 - Acute upper respiratory infection, unspecified Jakub Grubbs MD Dec 22, 2017 16:19
[2017-12-22 20:00] VITALS: BP 161/76; PULSE 65; RESP 18; TEMP 97.8; O2SAT 95
[2017-12-22 21:05] VITALS: O2SAT 98
[2017-12-22] MEDS: POTASSIUM CHLORIDE 10 MEQ CONTROLLED RELEASE TAB PO SCH (21:38)
[2017-12-22] MEDS: DOCUSATE SODIUM 100 MG CAP PO SCH (21:38)
[2017-12-23] VITALS: BP 189/83; PULSE 88; RESP 18; TEMP 98.1; O2SAT 95
[2017-12-23] MEDS ORDERED: cloNIDine HCL 0.1 MG TAB PO ONE (00:30)
[2017-12-23] MEDS: methylPREDNISolone SOD SUCC 40 MG/1 ML VIAL IV PUSH SCH (05:29)
[2017-12-23] MEDS: LEVOTHYROXINE SODIUM 50 MCG TAB PO SCH (05:29)
[2017-12-23] MEDS: RESP: ALBUTEROL 2.5 MG/3 ML NEB (PRN) NEB (07:35)
[2017-12-23 07:39] VITALS: O2SAT 98
[2017-12-23] MEDS: RESP: ALBUTEROL 2.5 MG/IPRATROPIUM 0.5 MG NEB (SCH) NEB ×3 (07:40→13:54)
[2017-12-23 08:00] VITALS: BP 153/69; PULSE 61; RESP 20; TEMP 96.8; O2SAT 96
[2017-12-23] MEDS ORDERED: TEMAZEPAM 15 MG CAP PO PRN (08:00)
[2017-12-23] MEDS ORDERED: RESP: ALBUTEROL 2.5 MG/IPRATROPIUM 0.5 MG NEB (PRN) NEB (08:00)
[2017-12-23] MEDS: LACTOBACILLUS ACIDOPHILUS TAB PO SCH (08:32)
[2017-12-23] MEDS: AMIODARONE 200 MG TAB PO SCH (08:32)
[2017-12-23] MEDS: APIXABAN 5 MG TABLET PO SCH (08:33)
[2017-12-23] MEDS: ESTROGENS CONJUGATED 0.625 MG TAB PO SCH (08:34)
[2017-12-23] MEDS: LORATADINE 10 MG TAB PO SCH (08:34)
[2017-12-23] MEDS: ATENOLOL 25 MG TAB PO SCH (08:34)
[2017-12-23] MEDS: amLODIPine BESYLATE 5 MG TAB PO SCH (08:35)
[2017-12-23] MEDS: FUROSEMIDE 20 MG TAB PO SCH (08:35)
[2017-12-23] MEDS: SODIUM CHLORIDE 0.9% FLUSH 10 ML FLUSH IV FLUSH SCH (08:39)
[2017-12-23] MEDS: BUDESONIDE-FORMOTEROL 160/4.5 MCG INHALER INH SCH (08:39)
[2017-12-23] MEDS ORDERED: guaiFENesin E.R. 600 MG TAB PO SCH (09:00)
--- NOTE | 2017-12-23 10:48 | HHI.DS ---
Discharge Summary Admission Date Dec 21, 2017 at 09:21 Discharge Date: Dec 23, 2017 Admitting Diagnosis asthma exacerbation, influenza A (1) Hyponatremia ICD Code: E87.1 - Hypo-osmolality and hyponatremia Diagnosis: Principal (2) Influenza A ICD Code: J10.1 - Influenza due to other identified influenza virus with other respiratory manifestations Diagnosis: Principal Status: Acute (3) Upper respiratory infection ICD Code: J06.9 - Acute upper respiratory infection, unspecified Diagnosis: Principal Status: Acute Procedures None Brief History - From Admission Mrs. Majano is an 86 year old female. She has asthma at baseline which is generally well controlled. The past 3 days she has been dealing with what she thought was a bronchitis. Respiratory status has been gradually worsening. This morning she awoke and thought she might due to the degree of her respiratory distress, so she came into the emergency department. She has tested positive for influenza here. She is also hypoxic. Oxygen was started and has helped. Respiratory treatments provided and patient is feeling slightly better. Hyponatremia is present but may be reactive. She does not have a history of problems with hyponatremia. Baseline she has hypertension and arrhythmia. No other complaints today. CBC/BMP: 12/22/17 0540 12/22/17 0540 Significant Findings Laboratory Tests Test 12/21/17 07:15 12/22/17 05:40 Red Blood Count 3.80 MIL/MM3 (4.00-5.30) 3.78 MIL/MM3 (4.00-5.30) Hemoglobin 11.1 GM/DL (11.6-15.3) Hematocrit 34.7 % (35.0-46.0) 34.7 % (35.0-46.0) Monocytes (%) (Auto) 17.6 % (0.0-8.0) Lymphocytes # (Auto) 0.6 TH/MM3 (1.0-4.8) 0.9 TH/MM3 (1.0-4.8) Total Protein 6.3 GM/DL (6.4-8.2) Albumin 2.9 GM/DL (3.4-5.0) 2.8 GM/DL (3.4-5.0) Calcium Level 8.1 MG/DL (8.5-10.1) 8.4 MG/DL (8.5-10.1) Sodium Level 128 MEQ/L (136-145) 134 MEQ/L (136-145) Chloride Level 97 MEQ/L (98-107) Estimat Glomerular Filtration Rate 72 ML/MIN (>89) 72 ML/MIN (>89) Troponin I LESS THAN 0.02 NG/ML Neutrophils (%) (Auto) 83.0 % (16.0-70.0) Random Glucose 141 MG/DL (74-106) Hospital Course Mrs. Majano is an 86-year-old female. She came in secondary to respiratory distress. She has asthma at baseline and have been exacerbated secondary to influenza A infection. She was treated with oxygen. Tamiflu was not use that she has had the flu for approximately 3-4 days prior to admit. Slowly her exacerbation has improved. She is back to baseline in regards to her breathing status, at this point. She still does not feel well but her flu symptoms are improving and she is suspected to continue to improve over next 3-5 days with resolution of her symptoms around that time. She is able to ambulate and function and is not oxygen dependent at this point. Patient is medically stable for discharge to home today. Pt Condition on Discharge: Stable Discharge Disposition: Discharge Home Discharge Time: <= 30 minutes Discharge Instructions DIET: Follow Instructions for: As Tolerated, No Restrictions Activities you can perform: Regular-No Restrictions Follow up Referrals: PCP Follow-up - 2 Weeks Continued Medications: Albuterol 8.5 GM Inh (Proair Hfa 8.5 GM Inh) 90 Mcg/Act Aer 2 PUFF INH Q4-6H PRN for SHORTNESS OF BREATH, #1 INHALER 0 Refills 108 mcg/actuation Albuterol 8.5 GM Inh (Proair Hfa 8.5 GM Inh) 90 Mcg/Act Aer 2 PUFF INH Q4-6H PRN for SHORTNESS OF BREATH, #1 INHALER 0 Refills 108 mcg/actuation Amiodarone (Amiodarone) 200 Mg Tab 200 MG PO DAILY for Regulate Heart Beat, #30 TAB 0 Refills Amlodipine (Norvasc) 5 Mg Tab 5 MG PO DAILY for Blood Pressure Management, #30 TAB 0 Refills Apixaban (Eliquis) 5 Mg Tab 5 MG PO BID for Blood Clot Prevention, #60 TAB 0 Refills Atenolol (Atenolol) 25 Mg Tab 25 MG PO DAILY for Blood Pressure Management, #30 TAB Budesonide-Formoterol Inh (Symbicort Inh) 160-4.5 Mcg/Act Aero 1 PUFF INH Q12HR, #1 INHALER 0 Refills Docusate Sodium (Colace) 100 Mg Capsule 200 MG PO HS Doxycycline Hyclate (Doxycycline Hyclate) 100 Mg Cap 100 MG PO BID for Infection, CAP 0 Refills Estrogens, Conjugated (Premarin) 0.625 Mg Tab 0.625 MG PO DAILY for Estrogen Supplements, #30 TAB 0 Refills Fexofenadine (Nanci Allergy) 180 Mg Tab 180 MG PO DAILY for Allergy Management, #30 TAB 0 Refills Furosemide (Lasix) 20 Mg Tab 20 MG PO DAILY, #30 TAB 0 Refills Hydrocodone-Acetaminophen (Hydrocodone-Acetaminophen) 5-325 mg Tab 1 TAB PO Q6H PRN for PAIN, TAB 0 Refills Lactobacillus Acidophilus (Probiotic) 1 Cap Cap 1 CAP PO DAILY for Nutritional Supplement, #90 CAP 0 Refills Levothyroxine (Synthroid) 50 Mcg Tab 50 MCG PO DAILY for Thyroid, #30 TAB 0 Refills Lisinopril (Lisinopril) 10 Mg Tab 10 MG PO DAILY@1600, #30 TAB 0 Refills Mometasone Nasal [place] (Nasonex Nasal [place]) 50 Mcg/Act Naspr 2 SPRAY EACH NARE DAILY PRN for ALLERGIES, #1 BOTTLE 0 Refills Potassium Chloride ER (K-Tab) 10 Meq Tab 10 MEQ PO HS for Electrolyte Replacement, #30 TAB 0 Refills Jakub Grubbs MD Dec 23, 2017 10:48
[2017-12-23 12:00] VITALS: PULSE 82; TEMP 96.9; O2SAT 96
== END 2017-12-23 14:25 | disposition home or self-care (01) ==
LOC: PHED 06:19 → PHEDA 09:21 → PH3A 14:03
PROVIDERS: ADMIT Hospitalist; ATTEND Hospitalist
DX: E87.1 Hypo-osmolality and hyponatremia (principal); J10.1 Influenza due to other identified influenza virus with other respiratory manifestations; J06.9 Acute upper respiratory infection, unspecified; J45.901 Unspecified asthma with (acute) exacerbation; R09.02 Hypoxemia; R06.03 Acute respiratory distress; I25.10 Atherosclerotic heart disease of native coronary artery without angina pectoris; I11.0 Hypertensive heart disease with heart failure; I50.9 Heart failure, unspecified; E78.00 Pure hypercholesterolemia, unspecified; I45.10 Unspecified right bundle-branch block; I48.91 Unspecified atrial fibrillation; R94.31 Abnormal electrocardiogram [ECG] [EKG]; E03.9 Hypothyroidism, unspecified; K21.9 Gastro-esophageal reflux disease without esophagitis; K58.9 Irritable bowel syndrome, unspecified; M48.061 Spinal stenosis, lumbar region without neurogenic claudication; M19.90 Unspecified osteoarthritis, unspecified site; Z79.01 Long term (current) use of anticoagulants; Z79.899 Other long term (current) drug therapy; Z95.0 Presence of cardiac pacemaker
CPT/HCPCS: 71045; 80053; 82550; 82552; 84484; 85025; 87804; 93005; 94640; 94664; 96361; 96374; 96375; 96376; 97110; 97116; 97162; 99285; G0378; G8987; G8988; J2405; J2920; J2930; J7030; J7613

== ENCOUNTER 2018-01-03 09:51 | Inpatient (IN) | payer MEDICARE, OTHER ==
[2018-01-03] VITALS (7 sets, daily range): BP systolic 129–167; BP diastolic 60–93; PULSE 60–67; RESP 18–22; TEMP 97.7–98.9; O2SAT 95–98
[~2018-01-03] VITALS: Ht 160 cm; Wt 75.0 kg
[~2018-01-03 09:51] MED LIST changes: +DOXY100C PO
[2018-01-03] MEDS ORDERED: MONT10TA2 PO (10:06)
[2018-01-03] MEDS ORDERED: LEVO75TA3 PO (10:06)
[2018-01-03] MEDS ORDERED: RESP: ALBUTEROL 2.5 MG/IPRATROPIUM 0.5 MG NEB (SCH) INH ONE (10:30)
[2018-01-03] MEDS ORDERED: SODIUM CHLORIDE 0.9% FLUSH 10 ML FLUSH IVF PRN (10:30)
[2018-01-03] MEDS ORDERED: methylPREDNISolone SOD SUCC 125 MG/2 ML VIAL IV PUSH ONE (10:30)
[2018-01-03] MEDS ORDERED: ACETAMINOPHEN/CODEINE ELIX 120 MG/12 MG/5 ML CUP PO ONE (10:30)
--- NOTE | 2018-01-03 10:36 | PD ---
HPI Chief Complaint: Respiratory Symptoms Time Seen by Provider: 10:06 Travel History International Travel<30 days: No Contact w/Intl Traveler<30days: No Traveled to known affect area: No History of Present Illness HPI 87 years old female complains of headache, body ache, persistent cough and shortness of breath. Patient states that she started having coughing congestion 2 weeks ago. Patient was admitted to [facility] December 21 and discharged December 23 with diagnosis of influenza A, URI, hyponatremia. Patient was discharged without antibiotics. Patient took leftover doxycycline at home for 7 days. Patient states that she had persistent cough despite the doxycycline. Patient was seen by personal physician 4 days ago and given prescription for clindamycin and prednisone. Patient took the medication as directed without cough relief. Patient denies any fever chills. Patient denies any nausea vomiting diarrhea. Patient has history of asthma. Patient has history of right bundle branch block and atrial fibrillation. Patient also has history of GERD, hyperlipidemia, CHF, hypertension, thyroid disease, status post pacer placement, IBS, and asthma. 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 ) Cardiovascular Problems: Yes (PACER) High Cholesterol: Yes Chemotherapy: No Chest Pain: No Congestive Heart Failure: Yes Cerebrovascular Accident: No Diabetes: No Diminished Hearing: No Endocrine: Yes Gastrointestinal Disorders: Yes (IBS) GERD: Yes Glaucoma: No Genitourinary: Yes Hepatitis: No Hiatal Hernia: No Hypertension: Yes Immune Disorder: No Implanted Vascular Access Dvce: Yes (PACEMAKER LEFT UPPER CHEST) 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 OOPHORECT.) Hysterectomy: No Joint Replacement: No Neurologic Surgery: Yes (LUMBAR FUSION, LUMBAR LAMI) Oral Surgery: Yes (T & A) Pacemaker: Yes (MEDTRONIC) Thoracic Surgery: No Tonsillectomy: Yes Other Surgery: Yes (NOSE SURGERY, PACEMAKER REPLACEMENT) Social History Alcohol Use: No Tobacco Use: No Substance Use: No Allergies-Medications (Allergen,Severity, Reaction): Coded Allergies: Sulfa (Sulfonamide Antibiotics) (Unverified Allergy, Severe, Rash, 01/03/18) adhesive (Unverified Allergy, Severe, RASH, BLISTERS, 01/03/18) cetylpyridinium chloride (Unverified Allergy, Severe, throat closes, ) levofloxacin (Unverified Allergy, Severe, Nausea/Vomiting, 01/03/18) penicillin G (Unverified Allergy, Severe, Rash, SWELLING, 01/03/18) diclofenac (Unverified Adverse Reaction, Severe, Rash, 01/03/18) etodolac (Unverified Adverse Reaction, Severe, Rash, 01/03/18) flurbiprofen (Unverified Adverse Reaction, Severe, Rash, 01/03/18) ibuprofen (Unverified Adverse Reaction, Severe, Rash, 01/03/18) indomethacin (Unverified Adverse Reaction, Severe, Rash, 01/03/18) ketoprofen (Unverified Adverse Reaction, Severe, Rash, 01/03/18) ketorolac (Unverified Adverse Reaction, Severe, Rash, 01/03/18) naproxen (Unverified Adverse Reaction, Severe, Rash, 01/03/18) oxaprozin (Unverified Adverse Reaction, Severe, Rash, 01/03/18) Uncoded Allergies: TEGADERM (Allergy, Severe, RASH, 10/24/14) Reported Meds & Prescriptions Reported Meds & Active Scripts Active Reported Levothyroxine (Levothyroxine Sodium) 75 Mcg Tab 75 Mcg PO DAILY Symbicort Inh (Budesonide/Formoterol Fumarate) 160-4.5 Mcg/Act Aero 1 Puff INH Q12HR Proair Hfa 8.5 GM Inh (Albuterol Sulfate) 90 Mcg/Act Aer 2 Puff INH Q4-6H PRN 108 mcg/actuation Colace (Docusate Sodium) 100 Mg Capsule 200 Mg PO HS Amiodarone (Amiodarone HCl) 200 Mg Tab 200 Mg PO DAILY Hydrocodone-Acetaminophen 5-325 mg Tab 1 Tab PO Q6H PRN Proair Hfa 8.5 GM Inh (Albuterol Sulfate) 90 Mcg/Act Aer 2 Puff INH Q4-6H PRN 108 mcg/actuation Lisinopril 10 Mg Tab 10 Mg PO DAILY@1600 Probiotic (Lactobacillus Acidophilus) 1 Cap Cap 1 Cap PO DAILY Premarin (Estrogens Conjugated) 0.625 Mg Tab 0.625 Mg PO DAILY K-Tab (Potassium Chloride) 10 Meq Tab 10 Meq PO HS Eliquis (Apixaban) 5 Mg Tab 5 Mg PO BID Norvasc (Amlodipine Besylate) 5 Mg Tab 5 Mg PO DAILY Lasix (Furosemide) 20 Mg Tab 20 Mg PO DAILY Atenolol 25 Mg Tab 25 Mg PO DAILY Review of Systems General / Constitutional: No: Fever Eyes: No: Visual changes HENT: No: Headaches Cardiovascular: No: Chest Pain or Discomfort Respiratory: Positive: Cough, Shortness of Breath Gastrointestinal: No: Abdominal Pain Genitourinary: No: Dysuria Musculoskeletal: No: Pain Skin: No Rash Neurologic: No: Weakness Psychiatric: No: Depression Endocrine: No: Polydipsia Hematologic/Lymphatic: No: Easy Bruising Physical Exam Narrative GENERAL: Well-nourished, well-developed patient. SKIN: Focused skin assessment warm/dry. HEAD: Normocephalic. EYES: No scleral icterus. No injection or drainage. NECK: Supple, trachea midline. No JVD or lymphadenopathy. CARDIOVASCULAR: Regular rate and rhythm without murmurs, gallops, or rubs. RESPIRATORY: Breath sounds equal bilaterally. No accessory muscle use. Patient has mild expiratory wheezes bilaterally. Few rhonchi at the bases. GASTROINTESTINAL: Abdomen soft, non-tender, nondistended. MUSCULOSKELETAL: No cyanosis, or edema. BACK: Nontender without obvious deformity. No CVA tenderness. Neurologic exam normal. Data Data Last Documented VS Vital Signs Date Time Temp Pulse Resp B/P (MAP) Pulse Ox O2 Delivery O2 Flow Rate FiO2 01/03/18 09:57 98.9 67 20 129/60 (83) 95 Orders Orders Complete Blood Count With Diff (01/03/18 10:28) Basic Metabolic Panel (Bmp) (01/03/18 10:28) Blood Culture (01/03/18 10:28) Chest, Single Ap (01/03/18 10:28) Iv Access Insert/Monitor (01/03/18 10:28) Ecg Monitoring (01/03/18 10:28) Oximetry (01/03/18 10:28) Sodium Chloride 0.9% Flush (Ns Flush) (01/03/18 10:30) Methylprednisolone So Succ Inj (Solumedr (01/03/18 10:30) Albuterol-Ipratropium Neb (Duoneb Neb) (01/03/18 10:30) Acetamin-Codeine 120-12 Liq (Tylenol - C (01/03/18 10:30) Electrocardiogram (01/03/18 10:05) Vancomycin Inj (Vancomycin Inj) (01/03/18 12:45) Aztreonam Inj (Azactam Inj) (01/03/18 12:45) Admit Order (Ed Use Only) (01/03/18 12:56) Labs Laboratory Tests Test 01/03/18 10:30 White Blood Count 17.9 TH/MM3 Red Blood Count 4.33 MIL/MM3 Hemoglobin 13.2 GM/DL Hematocrit 39.1 % Mean Corpuscular Volume 90.3 FL Mean Corpuscular Hemoglobin 30.5 PG Mean Corpuscular Hemoglobin Concent 33.8 % Red Cell Distribution Width 13.8 % Platelet Count 211 TH/MM3 Mean Platelet Volume 7.6 FL Neutrophils (%) (Auto) 82.6 % Lymphocytes (%) (Auto) 9.4 % Monocytes (%) (Auto) 7.7 % Eosinophils (%) (Auto) 0.1 % Basophils (%) (Auto) 0.2 % Neutrophils # (Auto) 14.8 TH/MM3 Lymphocytes # (Auto) 1.7 TH/MM3 Monocytes # (Auto) 1.4 TH/MM3 Eosinophils # (Auto) 0.0 TH/MM3 Basophils # (Auto) 0.0 TH/MM3 CBC Comment DIFF FINAL Differential Comment Blood Urea Nitrogen 17 MG/DL Creatinine 0.83 MG/DL Random Glucose 91 MG/DL Calcium Level 8.3 MG/DL Sodium Level 131 MEQ/L Potassium Level 3.9 MEQ/L Chloride Level 96 MEQ/L Carbon Dioxide Level 27.0 MEQ/L Anion Gap 8 MEQ/L Estimat Glomerular Filtration Rate 65 ML/MIN MDM Medical Decision Making Medical Screen Exam Complete: Yes Emergency Medical Condition: Yes Interpretation(s) Last Impressions Chest X-Ray 01/03/18 1028 Signed Impressions: Service Date/Time: Wednesday, January 03, 2018 10:43 - CONCLUSION: 1. Bilateral lower lobe airspace disease, more prominent on the right. Differential considerations include aspiration or pneumonia in the appropriate clinical setting. Aleksandar Higgins MD 12:23 PM. CBC WBC 17.9. 82 neutrophil. Sodium 131. Differential Diagnosis Differential diagnosis including influenza, bronchitis, pneumonia. Narrative Course 87 years old female with persistent cough and shortness of breath. History of asthma. Patient with tested positive for flu A recently. Albuterol with Atrovent unit dose treatment 1. Solu-Medrol 60 mg IV. Tylenol with codeine 12.5 cc p.o. given. Vancomycin 1 g IV given. Azactam 1 g IV given. Diagnosis Primary Impression: Pneumonia Qualified Codes: J18.1 - Lobar pneumonia, unspecified organism Additional Impressions: Acute asthma exacerbation Qualified Codes: J45.41 - Moderate persistent asthma with (acute) exacerbation Failure of outpatient treatment Admitting Information Admitting Physician Requests: Admit Patrick Adrian MD Jan 03, 2018 10:36
[2018-01-03 10:57] LABS: AUTOMATED NEUTROPHIL # 14.8 TH/MM3 (1.8-7.7); BASOPHIL % 0.2 % (0.0-2.0); EOSINOPHIL % 0.1 % (0.0-4.0); HEMATOCRIT 39.1 % (35.0-46.0); HEMOGLOBIN 13.2 GM/DL (11.6-15.3); LYMPH % 9.4 % (9.0-44.0); LYMPHOCYTE # 1.7 TH/MM3 (1.0-4.8); MEAN CELL VOLUME 90.3 FL (80.0-100.0); MEAN CORPUSCULAR HEMOGLOBIN 30.5 PG (27.0-34.0); MEAN CORPUSCULAR HGB CONC 33.8 % (32.0-36.0); MEAN PLATELET VOLUME 7.6 FL (7.0-11.0); MONO % 7.7 % (0.0-8.0); MONOCYTE # 1.4 TH/MM3 (0-0.9); NEUT % 82.6 % (16.0-70.0); PLATELET COUNT 211 TH/MM3 (150-450); RED BLOOD COUNT 4.33 MIL/MM3 (4.00-5.30); RED CELL DISTRIBUTION WIDTH 13.8 % (11.6-17.2); WHITE BLOOD COUNT 17.9 TH/MM3 (4.0-11.0)
[2018-01-03 11:06] LABS: CALCIUM 8.3 MG/DL (8.5-10.1); CREATININE 0.83 MG/DL (0.50-1.00)
--- NOTE | 2018-01-03 11:26 | RADRPT ---
EXAM DATE/TIME: 01/03/2018 10:43 [facility] COMPARISON: CHEST SINGLE AP, December 21, 2017, 6:47. INDICATIONS : Cough. Chest pain. Wheezing. MEDICAL HISTORY : Congestive heart failure. Asthma. SURGICAL HISTORY : Pacemaker. Fusion, lumbar. Cardiac cath. ENCOUNTER: Subsequent ACUITY: 2 days PAIN SCORE: 4/10 LOCATION: Left chest FINDINGS: Minimal opacities in the lower lobes, more prominently on the right. Cardiomediastinal contours and a re stable. Stable multilead pacemaker in place. Remainder of the exam is unchanged. CONCLUSION: 1. Bilateral lower lobe airspace disease, more prominent on the right. Differential considerations in clude aspiration or pneumonia in the appropriate clinical setting. Aleksandar Higgins MD on January 03, 2018 at 11:15 Board Certified Radiologist. This report was verified electronically.
[2018-01-03] MEDS ORDERED: AZTREONAM INJ 1,000 MG in SODIUM CHLORIDE 0.9% INJ 100 ML IV ONE (12:45)
[2018-01-03] MEDS ORDERED: VANCOMYCIN INJ 1,000 MG in SODIUM CHLOR 0.9% 250 ML INJ 250 ML IV ONE (12:45)
[2018-01-03] MEDS ORDERED: Vancomycin Consult Pharmacy 1 EA OTHER SCH (13:15)
--- NOTE | 2018-01-03 13:25 | HHI.HP ---
[facility] Unknown Admission Diagnosis Pneumonia . failed outpatient treatment Diagnoses: (1) Pneumonia Diagnosis: Principal Chief Complaint: ' I'm not feeling good.' Travel History International Travel<30 Days: No Contact w/Intl Traveler <30 Da: No Traveled to Known Affected Are: No History of Present Illness patient is a 87 y/o female with history of atrial fibrillation, hypertension, asthma, who presented to ER with worsening sob. she was admitted to the hospital about two weeks ago and was discharged home after she was treated with Flu. she says that she was treated with a course of antibiotic at the time. she was seen by her allergy physician late last week and she was prescribed clindamycin and prednisone which she's been taking since then. however she says that her condition hasn't improved as much. she's complaining of sob, cough productive of yellowish sputum and chills at home. there's no report of fever. she says that ' one of her friends had flu and she might've got it from him'. Review of Systems Constitutional: COMPLAINS OF: Chills, DENIES: Fever, Weight loss, Night Sweats Eyes: DENIES: Blurred vision, Diplopia, Vision loss, Double Vision Ears, nose, mouth, throat: DENIES: Tinnitus, Vertigo, Throat pain, Epistaxis Respiratory: COMPLAINS OF: Cough, Sputum production, Shortness of breath, DENIES: Apneas, Snoring, Wheezing, Hemoptysis Cardiovascular: DENIES: Chest pain, Palpitations, Syncope, Dyspnea on Exertion , PND, Lower Extremity Edema, Orthopnea, Claudication Gastrointestinal: DENIES: Abdominal pain, Black stools, Bloody stools, Constipation, Diarrhea, Nausea, Vomiting, Difficulty Swallowing, Anorexia Genitourinary: DENIES: Urinary frequency, Urgency, Hematuria, Dysuria Musculoskeletal: DENIES: Joint pain, Muscle aches, Stiffness, Joint Swelling Integumentary: DENIES: Rash Neurologic: DENIES: Abnormal gait, Headache, Localized weakness, Paresthesias, Seizures, Speech Problems, Tremor, Poor Balance Psychiatric: DENIES: Anxiety, Confusion, Mood changes, Depression, Hallucinations, Agitation, Suicidal Ideation, Homicidal Ideation, Delusions Past Family Social History Past Medical History Asthma Hypertension Atrial fibrillation Right bundle-branch block Osteoarthritis Coronary artery disease Hyperlipidemia Congestive heart failure Irritable bowel syndrome Gastroesophageal reflux disease Hypothyroidism Lumbar stenosis Pacemaker Past Surgical History Past Surgical History Pacemaker placement (General Bloodtronic) Partial colectomy Polyp removal Laparoscopic cholecystectomy Appendectomy Right renal artery stent placement Bilateral cataract surgery Unilateral nephrectomy Abdominal hysterectomy Lumbar fusion Lumbar laminectomy Tonsillectomy Nasal surgery Reported Medications Levothyroxine (Levothyroxine Sodium) 75 Mcg Tab 75 Mcg PO DAILY Symbicort Inh (Budesonide/Formoterol Fumarate) 160-4.5 Mcg/Act Aero 1 Puff INH Q12HR Proair Hfa 8.5 GM Inh (Albuterol Sulfate) 90 Mcg/Act Aer 2 Puff INH Q4-6H PRN 108 mcg/actuation Colace (Docusate Sodium) 100 Mg Capsule 200 Mg PO HS Amiodarone (Amiodarone HCl) 200 Mg Tab 200 Mg PO DAILY Hydrocodone-Acetaminophen 5-325 mg Tab 1 Tab PO Q6H PRN Proair Hfa 8.5 GM Inh (Albuterol Sulfate) 90 Mcg/Act Aer 2 Puff INH Q4-6H PRN 108 mcg/actuation Lisinopril 10 Mg Tab 10 Mg PO DAILY@1600 Probiotic (Lactobacillus Acidophilus) 1 Cap Cap 1 Cap PO DAILY Premarin (Estrogens Conjugated) 0.625 Mg Tab 0.625 Mg PO DAILY K-Tab (Potassium Chloride) 10 Meq Tab 10 Meq PO HS Eliquis (Apixaban) 5 Mg Tab 5 Mg PO BID Norvasc (Amlodipine Besylate) 5 Mg Tab 5 Mg PO DAILY Lasix (Furosemide) 20 Mg Tab 20 Mg PO DAILY Atenolol 25 Mg Tab 25 Mg PO DAILY Allergies: Coded Allergies: Sulfa (Sulfonamide Antibiotics) (Unverified Allergy, Severe, Rash, 01/03/18) adhesive (Unverified Allergy, Severe, RASH, BLISTERS, 01/03/18) cetylpyridinium chloride (Unverified Allergy, Severe, throat closes, ) levofloxacin (Unverified Allergy, Severe, Nausea/Vomiting, 01/03/18) penicillin G (Unverified Allergy, Severe, Rash, SWELLING, 01/03/18) diclofenac (Unverified Adverse Reaction, Severe, Rash, 01/03/18) etodolac (Unverified Adverse Reaction, Severe, Rash, 01/03/18) flurbiprofen (Unverified Adverse Reaction, Severe, Rash, 01/03/18) ibuprofen (Unverified Adverse Reaction, Severe, Rash, 01/03/18) indomethacin (Unverified Adverse Reaction, Severe, Rash, 01/03/18) ketoprofen (Unverified Adverse Reaction, Severe, Rash, 01/03/18) ketorolac (Unverified Adverse Reaction, Severe, Rash, 01/03/18) naproxen (Unverified Adverse Reaction, Severe, Rash, 01/03/18) oxaprozin (Unverified Adverse Reaction, Severe, Rash, 01/03/18) Uncoded Allergies: TEGADERM (Allergy, Severe, RASH, 10/24/14) Active Ordered Medications Inpatient Medications Acetaminophen/ Codeine Phosphate (Tylenol - Codeine 120-12 Liq) 12.5 ml ONCE ONCE PO Last administered on 01/03/18at 10:51; Start 01/03/18 at 10:30; Stop at 10:31; Status DC Albuterol/ Ipratropium (Duoneb Neb) 1 ampule ONCE ONCE INH Last administered on 01/03/18at 10:44; Start 01/03/18 at 10:30; Stop 01/03/18 at 10:31; Status DC Aztreonam 1000 mg/ Sodium Chloride 100 ml @ 200 mls/hr ONCE ONCE IV ; Start at 12:45; Stop 01/03/18 at 13:14 Methylprednisolone Sodium Succinate (SoluMEDROL INJ) 60 mg ONCE ONCE IV PUSH Last administered on 01/03/18at 10:50; Start 01/03/18 at 10:30; Stop 01/03/18 at 10: 31; Status DC Sodium Chloride (NS Flush) 2 ml UNSCH PRN IVF FLUSH AFTER USING IV ACCESS; Start 01/03/18 at 10:30 Vancomycin HCl 1000 mg/Sodium Chloride 250 ml @ 250 mls/hr ONCE ONCE IV ; Start 01/03/18 at 12:45; Stop 01/03/18 at 13:44 Social History quit smoking years ago. lives at home. Physical Exam Vital Signs Vital Signs Date Time Temp Pulse Resp B/P (MAP) Pulse Ox O2 Delivery O2 Flow Rate FiO2 01/03/18 09:57 98.9 67 20 129/60 (83) 95 Physical Exam GENERAL: This is a well-nourished, well-developed patient, in no apparent distress. SKIN: No rashes, ecchymoses or lesions. Cool and dry. HEAD: Atraumatic. Normocephalic. No temporal or scalp tenderness. EYES: Pupils equal round and reactive. Extraocular motions intact. No scleral icterus. No injection or drainage. ENT: Nose without bleeding, purulent drainage or septal hematoma. Throat without erythema, tonsillar hypertrophy or exudate. Uvula midline. Airway patent. NECK: Trachea midline. No JVD or lymphadenopathy. Supple, nontender, no meningeal signs. CARDIOVASCULAR: Regular rate and rhythm without murmurs, gallops, or rubs. RESPIRATORY: coarse sounds in the bases. GASTROINTESTINAL: Abdomen soft, non-tender, nondistended. No hepato-splenomegaly , or palpable masses. No guarding. MUSCULOSKELETAL: Extremities without clubbing, cyanosis, or edema. No joint tenderness, effusion, or edema noted. No calf tenderness. Negative Homans sign bilaterally. NEUROLOGICAL: Awake and alert. Cranial nerves II through XII intact. Motor and sensory grossly within normal limits. Five out of 5 muscle strength in all muscle groups. Normal speech. Laboratory Laboratory Tests Test 01/03/18 10:30 White Blood Count 17.9 Red Blood Count 4.33 Hemoglobin 13.2 Hematocrit 39.1 Mean Corpuscular Volume 90.3 Mean Corpuscular Hemoglobin 30.5 Mean Corpuscular Hemoglobin Concent 33.8 Red Cell Distribution Width 13.8 Platelet Count 211 Mean Platelet Volume 7.6 Neutrophils (%) (Auto) 82.6 Lymphocytes (%) (Auto) 9.4 Monocytes (%) (Auto) 7.7 Eosinophils (%) (Auto) 0.1 Basophils (%) (Auto) 0.2 Neutrophils # (Auto) 14.8 Lymphocytes # (Auto) 1.7 Monocytes # (Auto) 1.4 Eosinophils # (Auto) 0.0 Basophils # (Auto) 0.0 CBC Comment DIFF FINAL Differential Comment Blood Urea Nitrogen 17 Creatinine 0.83 Random Glucose 91 Calcium Level 8.3 Sodium Level 131 Potassium Level 3.9 Chloride Level 96 Carbon Dioxide Level 27.0 Anion Gap 8 Estimat Glomerular Filtration Rate 65 Date/Time Source Procedure Growth Status 01/03/18 10:35 Blood Peripheral Aerobic Blood Culture Pending Received 01/03/18 10:35 Blood Peripheral Anaerobic Blood Culture Pending Received Result Diagram: 01/03/18 1030 01/03/18 1030 Imaging Last Impressions Chest X-Ray 01/03/18 1028 Signed Impressions: Service Date/Time: Wednesday, January 03, 2018 10:43 - CONCLUSION: 1. Bilateral lower lobe airspace disease, more prominent on the right. Differential considerations include aspiration or pneumonia in the appropriate clinical setting. Aleksandar Higgins MD EKG; pacemaker rhythm with RBBB. Caprini VTE Risk Assessment Caprini VTE Risk Assessment: Mod/High Risk (score >= 2) Caprini Risk Assessment Model Point Value = 1 Point Value = 2 Point Value = 3 Point Value = 5 Age 41-60 Minor surgery BMI > 25 kg/m2 Swollen legs Varicose veins or History of unexplained or recurrent spontaneous Oral contraceptives or hormone replacement Sepsis (< 1 month) Serious lung disease, including pneumonia (< 1 month) Abnormal pulmonary function Acute myocardial infarction Congestive heart failure (< 1 month) History of inflammatory bowel disease Medical patient at bed rest Age 61-74 Arthroscopic surgery Major open surgery (> 45 min) Laparoscopic surgery (> 45 min) Malignancy Confined to bed (> 72 hours) Immobilizing plaster cast Central venous access Age >= 75 History of VTE Family history of VTE Factor V Leiden Prothrombin [id number] Lupus anticoagulant Anticardiolipin antibodies Elevated serum homocysteine Heparin-induced thrombocytopenia Other congenital or acquired thrombophilia Stroke (< 1 month) Elective arthroplasty Hip, pelvis, or leg fracture Acute spinal cord injury (< 1 month) Prophylaxis Regimen Total Risk Factor Score Risk Level Prophylaxis Regimen 0-1 Low Early ambulation 2 Moderate Order ONE of the following: *Sequential Compression Device (SCD) *Heparin 5000 units SQ BID 3-4 Higher Order ONE of the following medications: *Heparin 5000 units SQ TID *Enoxaparin/Lovenox 40 mg SQ daily (WT < 150 kg, CrCl > 30 mL/min) *Enoxaparin/Lovenox 30 mg SQ daily (WT < 150 kg, CrCl > 10-29 mL/min) *Enoxaparin/Lovenox 30 mg SQ BID (WT < 150 kg, CrCl > 30 mL/min) AND/OR *Sequential Compression Device (SCD) 5 or more Highest Order ONE of the following medications: *Heparin 5000 units SQ TID (Preferred with Epidurals) *Enoxaparin/Lovenox 40 mg SQ daily (WT < 150 kg, CrCl > 30 mL/min) *Enoxaparin/Lovenox 30 mg SQ daily (WT < 150 kg, CrCl > 10-29 mL/min) *Enoxaparin/Lovenox 30 mg SQ BID (WT < 150 kg, CrCl > 30 mL/min) AND *Sequential Compression Device (SCD) Assessment and Plan Assessment and Plan A/P - health-care associated pneumonia- ( patient was admitted to the hospital two weeks ago and was treated for flu) with history of asthma continue with broad-spectrum IV antibiotics- follow the blood cultures and obtain the sputum culture-will deescalate the antibiotic regimen based on the clinical course and cultures. resume Symbicort and start on neb treatment. -atrial fibrillation- s/p pacemaker placement; resume Atenolol and Amiodarone- on Eliquis -hypertension; resume home meds; will monitor and adjust the regimen as needed. -hypothyroidism; resume Synthroid. -DVT prophylaxis; on Eliquis -consult PT. Discussed Condition With ER physician and the patient. Physician Certification 2 Midnight Certification Type: Admission for Inpatient Services Order for Inpatient Services The services are ordered in accordance with Medicare regulations or non- Medicare payer requirements, as applicable. In the case of services not specified as inpatient-only, they are appropriately provided as inpatient services in accordance with the 2-midnight benchmark. Estimated LOS (days): 2 days is the estimated time the patient will need to remain in the hospital, assuming treatment plan goals are met and no additional complications. Post-Hospital Plan: Not yet determined Problem Qualifiers (1) Pneumonia: Qualified Codes: J18.1 - Lobar pneumonia, unspecified organism Sharmaine Neely MD Jan 03, 2018 13:25
[2018-01-03] MEDS ORDERED: ALUMINUM/MAGNESIUM/SIMETH 30 ML CUP PO PRN (13:30)
--- NOTE | 2018-01-03 15:32 | EKG ---
Date Performed: 01/03/2018 Time Performed: 10:05:32 PTAGE: 87 years EKG: ELECTRONIC ATRIAL PACEMAKER RIGHT BUNDLE BRANCH BLOCK Since the previous tracing, no signif icant change noted ABNORMAL ECG PREVIOUS TRACING : 12/21/2017 06.57 DOCTOR: Marshall Lyles Interpretating Date/Time 01/03/2018 15:24:29
[2018-01-03] MEDS: LISINOPRIL 10 MG TAB PO SCH (16:27)
[2018-01-03] MEDS: POTASSIUM CHLORIDE 10 MEQ CONTROLLED RELEASE TAB PO SCH (21:00)
[2018-01-03] MEDS: RESP: ALBUTEROL 2.5 MG/IPRATROPIUM 0.5 MG NEB (PRN) NEB (22:39)
[2018-01-03] MEDS ORDERED: ALUMINUM/MAGNESIUM/SIMETH 30 ML CUP PO ONE (23:00)
[2018-01-03] MEDS: AZTREONAM INJ 2,000 MG in SODIUM CHLORIDE 0.9% INJ 100 ML IV SCH (23:06)
[2018-01-03] MEDS: ACETAMINOPHEN/HYDROcodone 325 MG/5 MG TAB PO PRN (23:06)
[2018-01-03] MEDS: APIXABAN 5 MG TABLET PO SCH (23:06)
[2018-01-03] MEDS: BUDESONIDE-FORMOTEROL 160/4.5 MCG INHALER INH SCH (23:11)
[2018-01-04] VITALS (8 sets, daily range): BP systolic 115–139; BP diastolic 59–75; PULSE 63–66; RESP 18; TEMP 97.5–97.9; O2SAT 94–98
[2018-01-04] MEDS: LEVOTHYROXINE SODIUM 75 MCG TAB PO SCH (05:19)
[2018-01-04] MEDS: AZTREONAM INJ 2,000 MG in SODIUM CHLORIDE 0.9% INJ 100 ML IV SCH ×3 (05:19→20:55)
[2018-01-04] MEDS: RESP: ALBUTEROL 2.5 MG/IPRATROPIUM 0.5 MG NEB (PRN) NEB ×2 (05:36→20:23)
[2018-01-04 07:36] LABS: AUTOMATED NEUTROPHIL # 13.6 TH/MM3 (1.8-7.7); BASOPHIL % 0.1 % (0.0-2.0); HEMATOCRIT 37.5 % (35.0-46.0); HEMOGLOBIN 12.7 GM/DL (11.6-15.3); LYMPH % 5.5 % (9.0-44.0); LYMPHOCYTE # 0.9 TH/MM3 (1.0-4.8); MEAN CELL VOLUME 90.3 FL (80.0-100.0); MEAN CORPUSCULAR HEMOGLOBIN 30.6 PG (27.0-34.0); MEAN CORPUSCULAR HGB CONC 33.8 % (32.0-36.0); MEAN PLATELET VOLUME 7.8 FL (7.0-11.0); MONO % 6.9 % (0.0-8.0); MONOCYTE # 1.1 TH/MM3 (0-0.9); NEUT % 87.5 % (16.0-70.0); PLATELET COUNT 191 TH/MM3 (150-450); RED BLOOD COUNT 4.15 MIL/MM3 (4.00-5.30); RED CELL DISTRIBUTION WIDTH 13.5 % (11.6-17.2); WHITE BLOOD COUNT 15.5 TH/MM3 (4.0-11.0)
[2018-01-04 08:00] LABS: BICARBONATE 29.2 MEQ/L (21.0-32.0); CALCIUM 8.9 MG/DL (8.5-10.1); CREATININE 0.76 MG/DL (0.50-1.00)
[2018-01-04 08:01] LABS: RANDOM VANCOMYCIN 4.6 COMMENT
[2018-01-04] MEDS ORDERED: ESTROGENS CONJUGATED 0.625 MG TAB PO SCH (09:00)
[2018-01-04] MEDS: amLODIPine BESYLATE 5 MG TAB PO SCH (09:00)
[2018-01-04] MEDS: ATENOLOL 25 MG TAB PO SCH (09:00)
[2018-01-04] MEDS ORDERED: AMIODARONE 200 MG TAB PO SCH (09:00)
[2018-01-04] MEDS: BUDESONIDE-FORMOTEROL 160/4.5 MCG INHALER INH SCH ×2 (09:32→20:50)
[2018-01-04] MEDS: FUROSEMIDE 20 MG TAB PO SCH (09:33)
[2018-01-04] MEDS: LACTOBACILLUS ACIDOPHILUS TAB PO SCH (09:33)
[2018-01-04] MEDS: APIXABAN 5 MG TABLET PO SCH ×2 (09:43→20:49)
--- NOTE | 2018-01-04 11:40 | HHI.PR ---
Subjective Remarks Follow-up healthcare associated pneumonia/failed outpatient treatment for pneumonia 01/04/18-patient seen and examined, currently afebrile and denies any chest pain or significant shortness of breath Objective Vitals Vital Signs Date Time Temp Pulse Resp B/P (MAP) Pulse Ox O2 Delivery O2 Flow Rate FiO2 01/04/18 08:07 97.5 64 18 126/62 (83) 94 01/04/18 05:36 98 Nasal Cannula 2.00 01/04/18 04:00 97.7 66 18 139/65 (89) 96 01/04/18 00:00 97.7 65 18 136/65 (88) 95 01/03/18 22:40 98 Nasal Cannula 2.00 01/03/18 20:00 98.0 62 21 155/67 (96) 97 01/03/18 18:03 97.7 64 18 146/66 (92) 97 01/03/18 17:42 01/03/18 16:36 22 95 Nasal Cannula 2.00 01/03/18 14:53 60 20 166/77 (106) 95 Room Air 01/03/18 13:25 66 20 167/93 (117) 95 Room Air I/O 01/03/18 01/03/18 01/03/18 01/04/18 01/04/18 01/04/18 07:00 15:00 23:00 07:00 15:00 23:00 Intake Total 250 ml 100 ml Balance 250 ml 100 ml Intake IV Total 250 ml 100 ml # Voids 2 2 # Bowel Movements 0 0 Result Diagram: 01/04/18 0642 01/04/18 0642 Imaging Last Impressions Chest X-Ray 01/03/18 1028 Signed Impressions: Service Date/Time: Wednesday, January 03, 2018 10:43 - CONCLUSION: 1. Bilateral lower lobe airspace disease, more prominent on the right. Differential considerations include aspiration or pneumonia in the appropriate clinical setting. Aleksandar Higgins MD Objective Remarks GENERAL: NAD SKIN: Warm and dry. HEAD: Normocephalic. EYES: No scleral icterus. No injection or drainage. NECK: Supple, trachea midline. No JVD or lymphadenopathy. CARDIOVASCULAR: Irregular Regular rate and rhythm without murmurs, gallops, or rubs. RESPIRATORY: Breath sounds decrease bilaterally. No accessory muscle use. GASTROINTESTINAL: Abdomen soft, non-tender, nondistended. MUSCULOSKELETAL: No cyanosis, or edema. BACK: Nontender without obvious deformity. No CVA tenderness. A/P Problem List: (1) HCAP (healthcare-associated pneumonia) ICD Code: J18.9 - Pneumonia, unspecified organism (2) Pneumonia ICD Code: J18.9 - Pneumonia, unspecified organism Status: Acute Assessment and Plan 87 year old female with - Health-care associated pneumonia continue with broad-spectrum IV antibiotics including Azactam and vancomycin pending blood and sputum culture reports -COPD No current exacerbation, continue Symbicort and neb treatment. -Atrial fibrillation- s/p pacemaker placement Continue Atenolol and Amiodarone as well as Eliquis -Hypertension Currently on atenolol -Hypothyroidism Continue Synthroid. -DVT prophylaxis; on Eliquis -consult PT. Problem Qualifiers (1) Pneumonia: Qualified Codes: J18.1 - Lobar pneumonia, unspecified organism Gregorio Fung MD Jan 04, 2018 11:40
[2018-01-04] MEDS: VANCOMYCIN INJ 1,250 MG in SODIUM CHLOR 0.9% 250 ML INJ 250 ML IV SCH (12:35)
[2018-01-04] MEDS: LISINOPRIL 10 MG TAB PO SCH (17:31)
[2018-01-04] MEDS ORDERED: SOD PHOSPHATE/SOD BIPHOSPHATE (ADULT) ENEMA 133ML PR ONE (18:45)
[2018-01-04] MEDS: POTASSIUM CHLORIDE 10 MEQ CONTROLLED RELEASE TAB PO SCH (20:49)
[2018-01-04] MEDS: AMIODARONE 200 MG TAB PO SCH (20:50)
[2018-01-04] MEDS: ESTROGENS CONJUGATED 0.625 MG TAB PO SCH (20:55)
[2018-01-05] VITALS (9 sets, daily range): BP systolic 101–187; BP diastolic 55–99; PULSE 63–79; RESP 17–20; TEMP 97.2–98.2; O2SAT 93–99
[2018-01-05] MEDS: RESP: ALBUTEROL 2.5 MG/IPRATROPIUM 0.5 MG NEB (PRN) NEB ×5 (01:06→23:51)
[2018-01-05] MEDS: ACETAMINOPHEN/HYDROcodone 325 MG/5 MG TAB PO PRN (03:26)
[2018-01-05] MEDS: LEVOTHYROXINE SODIUM 75 MCG TAB PO SCH (06:12)
[2018-01-05] MEDS: AZTREONAM INJ 2,000 MG in SODIUM CHLORIDE 0.9% INJ 100 ML IV SCH ×4 (06:13→21:05)
[2018-01-05 08:31] LABS: AUTOMATED NEUTROPHIL # 6.1 TH/MM3 (1.8-7.7); BASOPHIL % 0.3 % (0.0-2.0); EOSINOPHIL % 0.5 % (0.0-4.0); HEMATOCRIT 36.5 % (35.0-46.0); HEMOGLOBIN 12.3 GM/DL (11.6-15.3); LYMPH % 17.5 % (9.0-44.0); LYMPHOCYTE # 1.5 TH/MM3 (1.0-4.8); MEAN CELL VOLUME 90.9 FL (80.0-100.0); MEAN CORPUSCULAR HEMOGLOBIN 30.5 PG (27.0-34.0); MEAN CORPUSCULAR HGB CONC 33.6 % (32.0-36.0); MEAN PLATELET VOLUME 7.9 FL (7.0-11.0); MONO % 9.5 % (0.0-8.0); MONOCYTE # 0.8 TH/MM3 (0-0.9); NEUT % 72.2 % (16.0-70.0); PLATELET COUNT 210 TH/MM3 (150-450); RED BLOOD COUNT 4.01 MIL/MM3 (4.00-5.30); RED CELL DISTRIBUTION WIDTH 13.6 % (11.6-17.2); WHITE BLOOD COUNT 8.5 TH/MM3 (4.0-11.0)
[2018-01-05 08:58] LABS: BICARBONATE 27.3 MEQ/L (21.0-32.0); CALCIUM 8.5 MG/DL (8.5-10.1); CREATININE 0.91 MG/DL (0.50-1.00)
[2018-01-05] MEDS: LACTOBACILLUS ACIDOPHILUS TAB PO SCH (09:13)
[2018-01-05] MEDS: APIXABAN 5 MG TABLET PO SCH ×2 (09:13→21:04)
[2018-01-05] MEDS: BUDESONIDE-FORMOTEROL 160/4.5 MCG INHALER INH SCH ×2 (09:13→21:05)
[2018-01-05] MEDS: ATENOLOL 25 MG TAB PO SCH (09:13)
[2018-01-05] MEDS: FUROSEMIDE 20 MG TAB PO SCH (09:14)
[2018-01-05] MEDS: amLODIPine BESYLATE 5 MG TAB PO SCH (09:15)
--- NOTE | 2018-01-05 10:36 | HHI.PR ---
Subjective Remarks Follow-up healthcare associated pneumonia/failed outpatient treatment for pneumonia 01/04/18-patient seen and examined, currently afebrile and denies any chest pain or significant shortness of breath 01/05/18-patient seen and examined,complains of cough production overnight and states as a result, she did not sleep well. Afebrile Objective Vitals Vital Signs Date Time Temp Pulse Resp B/P (MAP) Pulse Ox O2 Delivery O2 Flow Rate FiO2 01/05/18 10:32 98 Nasal Cannula 21 01/05/18 09:36 97.6 67 18 187/72 (110) 96 01/05/18 04:00 97.2 79 18 164/99 (120) 97 01/05/18 01:09 99 01/05/18 00:22 97.8 63 17 123/58 (79) 96 01/04/18 20:28 96 01/04/18 20:00 97.9 64 18 123/75 (91) 95 01/04/18 16:37 97.7 64 18 134/60 (84) 95 01/04/18 12:02 97.9 63 18 115/59 (77) 95 I/O 01/04/18 01/04/18 01/04/18 01/05/18 01/05/18 01/05/18 07:00 15:00 23:00 07:00 15:00 23:00 Intake Total 480 ml 580 ml Balance 480 ml 580 ml Intake Oral 480 ml 480 ml IV Total 100 ml # Voids 2 3 1 2 # Bowel Movements 0 1 0 Result Diagram: 01/05/18 0730 01/05/18 0730 Imaging Last Impressions Chest X-Ray 01/03/18 1028 Signed Impressions: Service Date/Time: Wednesday, January 03, 2018 10:43 - CONCLUSION: 1. Bilateral lower lobe airspace disease, more prominent on the right. Differential considerations include aspiration or pneumonia in the appropriate clinical setting. Aleksandar Higgins MD Objective Remarks GENERAL: NAD SKIN: Warm and dry. HEAD: Normocephalic. EYES: No scleral icterus. No injection or drainage. NECK: Supple, trachea midline. No JVD or lymphadenopathy. CARDIOVASCULAR: Irregular Regular rate and rhythm without murmurs, gallops, or rubs. RESPIRATORY: Breath sounds decrease bilaterally. No accessory muscle use. GASTROINTESTINAL: Abdomen soft, non-tender, nondistended. MUSCULOSKELETAL: No cyanosis, or edema. BACK: Nontender without obvious deformity. No CVA tenderness. A/P Problem List: (1) HCAP (healthcare-associated pneumonia) ICD Code: J18.9 - Pneumonia, unspecified organism (2) Pneumonia ICD Code: J18.9 - Pneumonia, unspecified organism Status: Acute Assessment and Plan 87 year old female with - Health-care associated pneumonia continue with broad-spectrum IV antibiotics including Azactam and vancomycin pending blood and sputum culture reports -COPD No current exacerbation, continue Symbicort and neb treatment. Add Mucinex -Atrial fibrillation- s/p pacemaker placement Continue Atenolol and Amiodarone as well as Eliquis -Hypertension Currently on atenolol -Hypothyroidism Continue Synthroid. -DVT prophylaxis; on Eliquis -consult PT. Problem Qualifiers (1) Pneumonia: Qualified Codes: J18.1 - Lobar pneumonia, unspecified organism Gregorio Fung MD Jan 05, 2018 10:36
[2018-01-05] MEDS: VANCOMYCIN INJ 1,250 MG in SODIUM CHLOR 0.9% 250 ML INJ 250 ML IV SCH (13:05)
[2018-01-05] MEDS: LISINOPRIL 10 MG TAB PO SCH (16:53)
[2018-01-05] MEDS: POTASSIUM CHLORIDE 10 MEQ CONTROLLED RELEASE TAB PO SCH (21:04)
[2018-01-05] MEDS: guaiFENesin E.R. 600 MG TAB PO SCH (21:04)
[2018-01-05] MEDS: ESTROGENS CONJUGATED 0.625 MG TAB PO SCH (21:04)
[2018-01-05] MEDS: AMIODARONE 200 MG TAB PO SCH (21:05)
[2018-01-06] VITALS (7 sets, daily range): BP systolic 113–176; BP diastolic 52–72; PULSE 62–75; RESP 18–19; TEMP 97–98.3; O2SAT 92–99
[2018-01-06] MEDS: BENZONATATE 100 MG CAP PO PRN ×2 (04:04→21:09)
[2018-01-06] MEDS: ACETAMINOPHEN 325 MG TAB PO PRN ×2 (04:05→23:04)
[2018-01-06] MEDS: AZTREONAM INJ 2,000 MG in SODIUM CHLORIDE 0.9% INJ 100 ML IV SCH ×3 (04:05→21:09)
[2018-01-06] MEDS: LEVOTHYROXINE SODIUM 75 MCG TAB PO SCH (05:48)
[2018-01-06] MEDS: LACTOBACILLUS ACIDOPHILUS TAB PO SCH (08:35)
[2018-01-06] MEDS: APIXABAN 5 MG TABLET PO SCH ×2 (08:35→21:10)
[2018-01-06] MEDS: ATENOLOL 25 MG TAB PO SCH (08:36)
[2018-01-06] MEDS: guaiFENesin E.R. 600 MG TAB PO SCH ×2 (08:36→21:10)
[2018-01-06] MEDS: FUROSEMIDE 20 MG TAB PO SCH (08:37)
[2018-01-06] MEDS: amLODIPine BESYLATE 5 MG TAB PO SCH (08:37)
[2018-01-06] MEDS: BUDESONIDE-FORMOTEROL 160/4.5 MCG INHALER INH SCH ×2 (08:39→21:10)
[2018-01-06] MEDS: RESP: ALBUTEROL 2.5 MG/IPRATROPIUM 0.5 MG NEB (PRN) NEB ×3 (10:08→21:44)
--- NOTE | 2018-01-06 10:49 | HHI.PR ---
Subjective Remarks Follow-up healthcare associated pneumonia/failed outpatient treatment for pneumonia 01/04/18-patient seen and examined, currently afebrile and denies any chest pain or significant shortness of breath 01/05/18-patient seen and examined,complains of cough production overnight and states as a result, she did not sleep well. Afebrile 01/06/18-patient seen and examined,states although she feels somehow improved, however still has some shortness of breath as well as cough. Afebrile. + constipation Objective Vitals Vital Signs Date Time Temp Pulse Resp B/P (MAP) Pulse Ox O2 Delivery O2 Flow Rate FiO2 01/06/18 10:10 94 21 01/06/18 08:00 98.3 75 18 176/72 (106) 92 161/72 (101) 01/06/18 05:15 97.0 70 19 154/70 (98) 94 01/06/18 00:10 98.0 67 18 125/60 (81) 95 01/05/18 21:15 97.9 64 17 124/59 (80) 94 01/05/18 20:07 99 Nasal Cannula 2.00 01/05/18 15:31 98.2 67 20 101/55 (70) 94 01/05/18 12:23 98.1 65 20 120/56 (77) 93 I/O 01/05/18 01/05/18 01/05/18 01/06/18 01/06/18 01/06/18 07:00 15:00 23:00 07:00 15:00 23:00 Intake Total 1250 ml 725 ml Balance 1250 ml 725 ml Intake Oral 1250 ml 725 ml # Voids 2 4 4 # Bowel Movements 0 0 0 Result Diagram: 01/05/18 0730 01/05/18 0730 Imaging Last Impressions Chest X-Ray 01/03/18 1028 Signed Impressions: Service Date/Time: Wednesday, January 03, 2018 10:43 - CONCLUSION: 1. Bilateral lower lobe airspace disease, more prominent on the right. Differential considerations include aspiration or pneumonia in the appropriate clinical setting. Aleksandar Higgins MD Objective Remarks GENERAL: NAD SKIN: Warm and dry. HEAD: Normocephalic. EYES: No scleral icterus. No injection or drainage. NECK: Supple, trachea midline. No JVD or lymphadenopathy. CARDIOVASCULAR: Irregular Regular rate and rhythm without murmurs, gallops, or rubs. RESPIRATORY: Breath sounds decrease bilaterally. No accessory muscle use.+ wheezings GASTROINTESTINAL: Abdomen soft, non-tender, nondistended. MUSCULOSKELETAL: No cyanosis, or edema. BACK: Nontender without obvious deformity. No CVA tenderness. A/P Problem List: (1) HCAP (healthcare-associated pneumonia) ICD Code: J18.9 - Pneumonia, unspecified organism (2) Pneumonia ICD Code: J18.9 - Pneumonia, unspecified organism Status: Acute Assessment and Plan 87 year old female with - Health-care associated pneumonia continue with broad-spectrum IV antibiotics including Azactam and d/c Vancomycin -COPD Add Prednisone 20mg daily now continue Symbicort and neb treatment, Mucinex -Atrial fibrillation- s/p pacemaker placement Continue Atenolol and Amiodarone as well as Eliquis -Hypertension Currently on atenolol -Hypothyroidism Continue Synthroid. -DVT prophylaxis; on Eliquis -consult PT. -Constipation Give Fleet enema 1 now Problem Qualifiers (1) Pneumonia: Qualified Codes: J18.1 - Lobar pneumonia, unspecified organism Gregorio Fung MD Jan 06, 2018 10:48
[2018-01-06] MEDS ORDERED: SOD PHOSPHATE/SOD BIPHOSPHATE (ADULT) ENEMA 133ML PR ONE (11:45)
[2018-01-06] MEDS: predniSONE 20 MG TAB PO SCH (12:36)
[2018-01-06] MEDS: LISINOPRIL 10 MG TAB PO SCH (15:26)
[2018-01-06] MEDS: AMIODARONE 200 MG TAB PO SCH (21:10)
[2018-01-06] MEDS: ESTROGENS CONJUGATED 0.625 MG TAB PO SCH (21:10)
[2018-01-06] MEDS: POTASSIUM CHLORIDE 10 MEQ CONTROLLED RELEASE TAB PO SCH (21:10)
[2018-01-07] VITALS: BP 157/70; PULSE 65; RESP 18; TEMP 97.6; O2SAT 94
[2018-01-07 04:00] VITALS: BP 167/77; PULSE 65; RESP 18; TEMP 97.8; O2SAT 96
[2018-01-07] MEDS: BENZONATATE 100 MG CAP PO PRN (06:14)
[2018-01-07] MEDS: AZTREONAM INJ 2,000 MG in SODIUM CHLORIDE 0.9% INJ 100 ML IV SCH (06:15)
[2018-01-07] MEDS: LEVOTHYROXINE SODIUM 75 MCG TAB PO SCH (06:15)
[2018-01-07] MEDS: RESP: ALBUTEROL 2.5 MG/IPRATROPIUM 0.5 MG NEB (PRN) NEB ×3 (06:21→13:15)
[2018-01-07 08:00] VITALS: BP 169/68; PULSE 70; RESP 18; TEMP 97.5; O2SAT 96
[2018-01-07] MEDS: APIXABAN 5 MG TABLET PO SCH (08:04)
[2018-01-07] MEDS: amLODIPine BESYLATE 5 MG TAB PO SCH (08:04)
[2018-01-07] MEDS: ATENOLOL 25 MG TAB PO SCH (08:04)
[2018-01-07] MEDS: predniSONE 20 MG TAB PO SCH (08:04)
[2018-01-07] MEDS: guaiFENesin E.R. 600 MG TAB PO SCH (08:04)
[2018-01-07] MEDS: LACTOBACILLUS ACIDOPHILUS TAB PO SCH (08:04)
[2018-01-07] MEDS: BUDESONIDE-FORMOTEROL 160/4.5 MCG INHALER INH SCH (08:05)
[2018-01-07] MEDS: FUROSEMIDE 20 MG TAB PO SCH (08:05)
[2018-01-07 09:33] VITALS: O2SAT 97
[2018-01-07] MEDS ORDERED: PHARMACY ORDERED LAB ONE (11:45)
--- NOTE | 2018-01-07 11:45 | HHI.PR ---
Subjective Remarks Follow-up healthcare associated pneumonia/failed outpatient treatment for pneumonia 01/04/18-patient seen and examined, currently afebrile and denies any chest pain or significant shortness of breath 01/05/18-patient seen and examined,complains of cough production overnight and states as a result, she did not sleep well. Afebrile 01/06/18-patient seen and examined,states although she feels somehow improved, however still has some shortness of breath as well as cough. Afebrile. + constipation 01/07/18-patient seen and examined; states she was able to ambulate in the hallway yesterday without any complaint of shortness of breath. Feeling better today Objective Vitals Vital Signs Date Time Temp Pulse Resp B/P (MAP) Pulse Ox O2 Delivery O2 Flow Rate FiO2 01/07/18 09:33 97 01/07/18 08:00 97.5 70 18 169/68 (101) 96 01/07/18 04:00 97.8 65 18 167/77 (107) 96 01/07/18 00:00 97.6 65 18 157/70 (99) 94 01/06/18 20:00 97.8 67 18 153/68 (96) 94 01/06/18 16:00 97.9 62 18 113/52 (72) 93 01/06/18 12:00 97.3 62 18 137/63 (87) 99 I/O 01/06/18 01/06/18 01/06/18 01/07/18 01/07/18 01/07/18 07:00 15:00 23:00 07:00 15:00 23:00 Intake Total 725 ml Balance 725 ml Intake Oral 725 ml # Voids 4 3 # Bowel Movements 0 1 Result Diagram: 01/05/18 0730 01/05/18 0730 Imaging Last Impressions Chest X-Ray 01/03/18 1028 Signed Impressions: Service Date/Time: Wednesday, January 03, 2018 10:43 - CONCLUSION: 1. Bilateral lower lobe airspace disease, more prominent on the right. Differential considerations include aspiration or pneumonia in the appropriate clinical setting. Aleksandar Higgins MD Objective Remarks GENERAL: NAD SKIN: Warm and dry. HEAD: Normocephalic. EYES: No scleral icterus. No injection or drainage. NECK: Supple, trachea midline. No JVD or lymphadenopathy. CARDIOVASCULAR: Irregular Regular rate and rhythm without murmurs, gallops, or rubs. RESPIRATORY: Breath sounds equal bilaterally. No accessory muscle use. GASTROINTESTINAL: Abdomen soft, non-tender, nondistended. MUSCULOSKELETAL: No cyanosis, or edema. BACK: Nontender without obvious deformity. No CVA tenderness. Procedures none A/P Problem List: (1) HCAP (healthcare-associated pneumonia) ICD Code: J18.9 - Pneumonia, unspecified organism Assessment and Plan 87 year old female with - Health-care associated pneumonia Improved continue with broad-spectrum IV antibiotic including Azactam and s/p Vancomycin -COPD Continue Prednisone 20mg daily now continue Symbicort and neb treatment, Mucinex -Atrial fibrillation- s/p pacemaker placement Continue Atenolol and Amiodarone as well as Eliquis -Hypertension Currently on atenolol -Hypothyroidism Continue Synthroid. -DVT prophylaxis; on Eliquis -consult PT. -Constipation Resolved s/p Fleet enema 1 Gregorio Fung MD Jan 07, 2018 11:45
--- NOTE | 2018-01-07 11:52 | HHI.FF ---
Face to Face Verification Diagnosis: (1) HCAP (healthcare-associated pneumonia) Physical Therapy Order: Evaluate and Treat Home Health Nursing Order: Signs/symptoms of disease process I have seen patient Lenora Majano on 01/07/18. My clinical findings support the need for the requested home health care services because: Patient has SOB I certify that my clinical findings support that this patient is homebound because: Poor cardiac reserve Gregorio Fung MD Jan 07, 2018 11:52
--- NOTE | 2018-01-07 11:56 | HHI.DS ---
Discharge Summary Admission Date Jan 03, 2018 at 12:58 Discharge Date: Jan 07, 2018 Admitting Diagnosis Pneumonia . failed outpatient treatment (1) HCAP (healthcare-associated pneumonia) ICD Code: J18.9 - Pneumonia, unspecified organism Procedures none Brief History - From Admission patient is a 87 y/o female with history of atrial fibrillation, hypertension, asthma, who presented to ER with worsening sob. she was admitted to the hospital about two weeks ago and was discharged home after she was treated with Flu. she says that she was treated with a course of antibiotic at the time. she was seen by her allergy physician late last week and she was prescribed clindamycin and prednisone which she's been taking since then. however she says that her condition hasn't improved as much. she's complaining of sob, cough productive of yellowish sputum and chills at home. there's no report of fever. she says that ' one of her friends had flu and she might've got it from him'. CBC/BMP: 01/05/18 0730 01/05/18 0730 Significant Findings Laboratory Tests Test 01/05/18 07:30 Neutrophils (%) (Auto) 72.2 % (16.0-70.0) Monocytes (%) (Auto) 9.5 % (0.0-8.0) Blood Urea Nitrogen 21 MG/DL (7-18) Estimat Glomerular Filtration Rate 59 ML/MIN (>89) Imaging Last Impressions Chest X-Ray 01/03/18 1028 Signed Impressions: Service Date/Time: Wednesday, January 03, 2018 10:43 - CONCLUSION: 1. Bilateral lower lobe airspace disease, more prominent on the right. Differential considerations include aspiration or pneumonia in the appropriate clinical setting. Aleksandar Higgins MD PE at Discharge GENERAL: NAD SKIN: Warm and dry. HEAD: Normocephalic. EYES: No scleral icterus. No injection or drainage. NECK: Supple, trachea midline. No JVD or lymphadenopathy. CARDIOVASCULAR: Irregular Regular rate and rhythm without murmurs, gallops, or rubs. RESPIRATORY: Breath sounds equal bilaterally. No accessory muscle use. GASTROINTESTINAL: Abdomen soft, non-tender, nondistended. MUSCULOSKELETAL: No cyanosis, or edema. BACK: Nontender without obvious deformity. No CVA tenderness. Hospital Course While in hospital, patient was treated for - Health-care associated pneumonia She was treated with broad-spectrum IV antibiotic including Azactam and Vancomycin. Vancomycin was discontinued. Patient will be switched to p.o. antibiotics -COPD She was treated with prednisone 20mg daily , Symbicort and neb treatment, Mucinex -Atrial fibrillation- s/p pacemaker placement She was continued on her home medication including atenolol and Amiodarone as well as Eliquis -Hypertension She was treated with atenolol -Hypothyroidism She was treated with Synthroid. -DVT prophylaxis; on Eliquis -Constipation Resolved s/p Fleet enema 1 Pt Condition on Discharge: Good Discharge Disposition: Disch w/ Home Health Serv Discharge Time: > 30 minutes Discharge Instructions DIET: Follow Instructions for: Heart Healthy Diet Activities you can perform: Regular-No Restrictions Follow up Referrals: PCP Follow-up - 1 Week New Medications: Azithromycin (Azithromycin) 500 Mg Tab 500 MG PO DAILY for Infection, #5 TAB 0 Refills Benzonatate (Tessalon Perles) 100 Mg Cap 100 MG PO Q8H PRN for cough, #30 CAP Prednisone (Prednisone) 20 Mg Tab 20 MG PO DAILY for Breathing Treatment, #7 TAB [guaiFENesin ER] () 600 MG TABCR 600 MG PO BID for Breathing Treatment, #20 Continued Medications: Albuterol 8.5 GM Inh (Proair Hfa 8.5 GM Inh) 90 Mcg/Act Aer 2 PUFF INH Q4-6H PRN for SHORTNESS OF BREATH, #1 INHALER 0 Refills 108 mcg/actuation Albuterol 8.5 GM Inh (Proair Hfa 8.5 GM Inh) 90 Mcg/Act Aer 2 PUFF INH Q4-6H PRN for SHORTNESS OF BREATH, #1 INHALER 0 Refills 108 mcg/actuation Amiodarone (Amiodarone) 200 Mg Tab 200 MG PO DAILY for Regulate Heart Beat, #30 TAB 0 Refills Amlodipine (Norvasc) 5 Mg Tab 5 MG PO DAILY for Blood Pressure Management, #30 TAB 0 Refills Apixaban (Eliquis) 5 Mg Tab 5 MG PO BID for Blood Clot Prevention, #60 TAB 0 Refills Atenolol (Atenolol) 25 Mg Tab 25 MG PO DAILY for Blood Pressure Management, #30 TAB Budesonide-Formoterol Inh (Symbicort Inh) 160-4.5 Mcg/Act Aero 1 PUFF INH Q12HR, #1 INHALER 0 Refills Docusate Sodium (Colace) 100 Mg Capsule 200 MG PO HS Estrogens, Conjugated (Premarin) 0.625 Mg Tab 0.625 MG PO DAILY for Estrogen Supplements, #30 TAB 0 Refills Furosemide (Lasix) 20 Mg Tab 20 MG PO DAILY, #30 TAB 0 Refills Hydrocodone-Acetaminophen (Hydrocodone-Acetaminophen) 5-325 mg Tab 1 TAB PO Q6H PRN for PAIN, TAB 0 Refills Lactobacillus Acidophilus (Probiotic) 1 Cap Cap 1 CAP PO DAILY for Nutritional Supplement, #90 CAP 0 Refills Levothyroxine (Levothyroxine) 75 Mcg Tab 75 MCG PO DAILY for Thyroid, #30 TAB 0 Refills Lisinopril (Lisinopril) 10 Mg Tab 10 MG PO DAILY@1600, #30 TAB 0 Refills Potassium Chloride ER (K-Tab) 10 Meq Tab 10 MEQ PO HS for Electrolyte Replacement, #30 TAB 0 Refills Gregorio Fung MD Jan 07, 2018 11:56
[2018-01-07 12:00] VITALS: BP 137/62; PULSE 62; RESP 18; TEMP 97.9; O2SAT 96
[2018-01-07] MEDS ORDERED: PRED20 PO (12:00)
[2018-01-07] MEDS ORDERED: BENZ100 PO (12:00)
[2018-01-07] MEDS ORDERED: AZIT500T2 PO (12:00)
[2018-01-07] MEDS ORDERED: guaiFENesin ER PO (12:00)
== END 2018-01-07 14:45 | disposition home health service (06) | DRG 190 ==
LOC: NEPE 09:51 → NEDA 12:58 → N05A 17:49
PROVIDERS: ADMIT Hospitalist; ATTEND Hospitalist
DX: J44.0 Chronic obstructive pulmonary disease with (acute) lower respiratory infection (principal); J18.9 Pneumonia, unspecified organism; I48.91 Unspecified atrial fibrillation; I11.0 Hypertensive heart disease with heart failure; I50.9 Heart failure, unspecified; I45.10 Unspecified right bundle-branch block; K21.9 Gastro-esophageal reflux disease without esophagitis; E03.9 Hypothyroidism, unspecified; E78.5 Hyperlipidemia, unspecified; K59.00 Constipation, unspecified; I25.10 Atherosclerotic heart disease of native coronary artery without angina pectoris; K58.9 Irritable bowel syndrome, unspecified; M19.90 Unspecified osteoarthritis, unspecified site; Y95 Nosocomial condition; Z95.0 Presence of cardiac pacemaker; Z87.891 Personal history of nicotine dependence; Z79.01 Long term (current) use of anticoagulants; Z90.5 Acquired absence of kidney
CPT/HCPCS: 71045; 76937; 80048; 80202; 85025; 87040; 87070; 87205; 93005; 94150; 94640; 94664; 94667; 94668; 96374; J2930; J3370; J7050; J7512

== ENCOUNTER → 2018-02-01 | Outpatient (CLI) | payer MEDICARE, OTHER ==
[~2018-02-01] MED LIST changes: +AZIT500T2 PO; +BENZ100 PO; -DOXY100C PO; -FEXO15TA PO; -LEVO.05 PO; +LEVO75TA3 PO; -MOME17I EACH NARE; +PRED20 PO; +guaiFENesin ER PO
[2018-02-01 13:45] LABS: AUTOMATED NEUTROPHIL # 2.7 TH/MM3 (1.8-7.7); BASOPHIL # 0.1 TH/MM3 (0-0.2); BASOPHIL % 1.2 % (0.0-2.0); EOSINOPHIL # 0.2 TH/MM3 (0-0.4); EOSINOPHIL % 3.5 % (0.0-4.0); HEMATOCRIT 34.9 % (35.0-46.0); HEMOGLOBIN 11.7 GM/DL (11.6-15.3); LYMPH % 19.5 % (9.0-44.0); LYMPHOCYTE # 0.9 TH/MM3 (1.0-4.8); MEAN CELL VOLUME 91.6 FL (80.0-100.0); MEAN CORPUSCULAR HEMOGLOBIN 30.6 PG (27.0-34.0); MEAN CORPUSCULAR HGB CONC 33.5 % (32.0-36.0); MEAN PLATELET VOLUME 7.3 FL (7.0-11.0); MONO % 15.5 % (0.0-8.0); MONOCYTE # 0.7 TH/MM3 (0-0.9); NEUT % 60.3 % (16.0-70.0); PLATELET COUNT 231 TH/MM3 (150-450); RED BLOOD COUNT 3.81 MIL/MM3 (4.00-5.30); WHITE BLOOD COUNT 4.5 TH/MM3 (4.0-11.0)
[2018-02-01 13:55] LABS: ALBUMIN 2.8 GM/DL (3.4-5.0); AST (GOT) 21 U/L (15-37); BLOOD UREA NITROGEN 13 MG/DL (7-18); CALCIUM 8.5 MG/DL (8.5-10.1); CHLORIDE 104 MEQ/L (98-107); CREATININE 0.85 MG/DL (0.50-1.00); GLOMERULAR FILTRATION RATE 63 ML/MIN (>89); GLUCOSE,FASTING 79 MG/DL (74-99); SODIUM (NA) 136 MEQ/L (136-145)
[2018-02-01 14:13] LABS: ALKALINE PHOSPHATASE 60 U/L (45-117); ALT (GPT) 23 U/L (10-53); TOTAL BILIRUBIN ADULT 0.4 MG/DL (0.2-1.0); TOTAL PROTEIN 6.7 GM/DL (6.4-8.2)
== END ==
LOC: PLAB 09:04
DX: E03.9 Hypothyroidism, unspecified (principal)
CPT/HCPCS: 36415; 80053; 84443; 85025

== ENCOUNTER 2018-03-21 16:43 | Emergency (ER) | payer MEDICARE, OTHER ==
[~2018-03-21] VITALS: Ht 157.5 cm; Wt 69.7 kg
[2018-03-21 16:48] VITALS: BP 196/90; PULSE 76; RESP 16; TEMP 97.8; O2SAT 97
[2018-03-21] MEDS ORDERED: MONT10TA2 PO (17:10)
--- NOTE | 2018-03-21 18:01 | PD ---
HPI Chief Complaint: Head Injury Time Seen by Provider: 17:53 Travel History International Travel<30 days: No Contact w/Intl Traveler<30days: No Traveled to known affect area: No History of Present Illness HPI This is a 87 y/o female who presents to the ED today for evaluation of a head injury. Approximately 5 days prior, patient states that she was walking her dog when she tripped and fell backwards from her walker, hitting the back of her head on the pavement. She denies loss of consciousness. Since then, the patient has experienced visual difficulty--difficulty with focusing and with discriminating colors--and worsening problems with her remote memory. She also indicates increased stress in her life, which she feels may be contributing to her memory problems. History is pertinent for a previous fall 2 years ago; she is on Eliquis for Afib. She denies headache, dizziness above baseline, and n/v. 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 ) Cardiovascular Problems: Yes (PACER) High Cholesterol: Yes Chemotherapy: No Chest Pain: No Congestive Heart Failure: No Cerebrovascular Accident: Yes Diabetes: No Diminished Hearing: No Endocrine: Yes Gastrointestinal Disorders: Yes (IBS) GERD: Yes Glaucoma: No Genitourinary: Yes Hepatitis: No Hiatal Hernia: No Hypertension: Yes Immune Disorder: No Implanted Vascular Access Dvce: Yes (PACEMAKER LEFT UPPER CHEST) 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) Psychiatric: No Reproductive: No Respiratory: Yes (ASTHMA) Immunizations Current: Yes Shingles: Yes Sleep Apnea: No Thyroid Disease: Yes Tetanus Vaccination: > 5 Years Influenza Vaccination: Yes ?: Not Menopausal: Yes : 4 Para: 3 Miscarriage: 1 Ovarian Cysts: Yes Past Surgical History Abdominal Surgery: Yes (PARTIAL COLECTOMY (POLYPS), LAP XUAN, APPY) AICD: No Appendectomy: Yes Body Medical Devices: RIGHT RENAL ARTERY STENT Cardiac Surgery: Yes (PACEMAKER) Cholecystectomy: Yes Ear Surgery: No Endocrine Surgery: No Eye Surgery: Yes (BILAT CATARACT EXT) Genitourinary Surgery: Yes (RIGHT RENAL ARTERY STENT IMPL) Gynecologic Surgery: Yes ([place], UNILAT. OOPHORECT.) Hysterectomy: No Joint Replacement: No Neurologic Surgery: Yes (LUMBAR FUSION, LUMBAR LAMI) Oral Surgery: Yes (T & A) Pacemaker: Yes (MEDTRONIC) Thoracic Surgery: No Tonsillectomy: Yes Other Surgery: Yes (NOSE SURGERY, PACEMAKER REPLACEMENT) Social History Alcohol Use: No Tobacco Use: No Substance Use: No Allergies-Medications (Allergen,Severity, Reaction): Coded Allergies: Sulfa (Sulfonamide Antibiotics) (Unverified Allergy, Severe, Rash, 03/21/18 ) adhesive (Unverified Allergy, Severe, RASH, BLISTERS, 03/21/18) cetylpyridinium chloride (Unverified Allergy, Severe, throat closes, ) levofloxacin (Unverified Allergy, Severe, Nausea/Vomiting, 03/21/18) penicillin G (Unverified Allergy, Severe, Rash, SWELLING, 03/21/18) diclofenac (Unverified Adverse Reaction, Severe, Rash, 03/21/18) etodolac (Unverified Adverse Reaction, Severe, Rash, 03/21/18) flurbiprofen (Unverified Adverse Reaction, Severe, Rash, 03/21/18) ibuprofen (Unverified Adverse Reaction, Severe, Rash, 03/21/18) indomethacin (Unverified Adverse Reaction, Severe, Rash, 03/21/18) ketoprofen (Unverified Adverse Reaction, Severe, Rash, 03/21/18) ketorolac (Unverified Adverse Reaction, Severe, Rash, 03/21/18) naproxen (Unverified Adverse Reaction, Severe, Rash, 03/21/18) oxaprozin (Unverified Adverse Reaction, Severe, Rash, 03/21/18) Uncoded Allergies: TEGADERM (Allergy, Severe, RASH, 10/24/14) Reported Meds & Prescriptions Reported Meds & Active Scripts Active Reported Singulair (Montelukast Sodium) 10 Mg Tab 10 Mg PO HS Levothyroxine (Levothyroxine Sodium) 75 Mcg Tab 75 Mcg PO DAILY Symbicort Inh (Budesonide/Formoterol Fumarate) 160-4.5 Mcg/Act Aero 1 Puff INH DIRECTED Proair Hfa 8.5 GM Inh (Albuterol Sulfate) 90 Mcg/Act Aer 2 Puff INH Q4-6H PRN 108 mcg/actuation Colace (Docusate Sodium) 100 Mg Capsule 200 Mg PO HS Amiodarone (Amiodarone HCl) 200 Mg Tab 200 Mg PO DAILY Hydrocodone-Acetaminophen 5-325 mg Tab 1 Tab PO Q6H PRN Lisinopril 10 Mg Tab 10 Mg PO DAILY@1600 Probiotic (Lactobacillus Acidophilus) 1 Cap Cap 1 Cap PO DAILY Premarin (Estrogens Conjugated) 0.625 Mg Tab 0.625 Mg PO DAILY K-Tab (Potassium Chloride) 10 Meq Tab 10 Meq PO HS Eliquis (Apixaban) 5 Mg Tab 5 Mg PO BID Norvasc (Amlodipine Besylate) 5 Mg Tab 5 Mg PO DAILY Lasix (Furosemide) 20 Mg Tab 20 Mg PO DAILY Atenolol 25 Mg Tab 25 Mg PO DAILY Review of Systems Except as stated in HPI: all other systems reviewed are Neg Physical Exam Narrative GENERAL: Pleasant 87 year old female who is in NAD. Awake, alert, oriented x3. Ambulatory in the ER without issues. SKIN: Warm and dry. HEAD: Atraumatic. Normocephalic. Tender to palpation in area of trauma on posterior/ superior aspect on R side. EYES: Pupils equal and round. EOMI. No nystagmus.No scleral icterus. No injection or drainage. Confrontational testing revealed intact peripheral vision. Vision 20/25 corrected, bilaterally. ENT: No nasal bleeding or discharge. Mucous membranes pink and moist. NECK: Trachea midline. No JVD. CARDIOVASCULAR: Regular rate and rhythm. RESPIRATORY: No accessory muscle use. Clear to auscultation. Breath sounds equal bilaterally. GASTROINTESTINAL: Abdomen soft, non-tender, nondistended. Hepatic and splenic margins not palpable. MUSCULOSKELETAL: Extremities without clubbing, cyanosis, or edema. No obvious deformities. NEUROLOGICAL: Awake and alert. No obvious cranial nerve deficits. Motor and sensation grossly within normal limits. Five out of 5 muscle strength in the arms and legs. Normal speech. PSYCHIATRIC: Appropriate mood and affect; insight and judgment normal. AAO x 4, grossly intact recent and remote memory. Data Data Last Documented VS Vital Signs Date Time Temp Pulse Resp B/P (MAP) Pulse Ox O2 Delivery O2 Flow Rate FiO2 6/25/18 18:15 61 14 196/87 (123) 98 Room Air 03/21/18 16:[address] Brain W/O Iv Contrast(Rout) (03/21/18 17:24) Complete Blood Count With Diff (03/21/18 17:53) Basic Metabolic Panel (Bmp) (03/21/18 17:53) Prothrombin Time / Inr (Pt) (03/21/18 17:53) Act Partial Throm Time (Ptt) (03/21/18 17:53) Ed Discharge Order (03/21/18 19:06) Labs Laboratory Tests Test 03/21/18 18:15 White Blood Count 4.5 TH/MM3 Red Blood Count 4.03 MIL/MM3 Hemoglobin 12.8 GM/DL Hematocrit 37.9 % Mean Corpuscular Volume 93.8 FL Mean Corpuscular Hemoglobin 31.8 PG Mean Corpuscular Hemoglobin Concent 33.8 % Red Cell Distribution Width 13.2 % Platelet Count 209 TH/MM3 Mean Platelet Volume 7.2 FL Neutrophils (%) (Auto) 58.6 % Lymphocytes (%) (Auto) 26.5 % Monocytes (%) (Auto) 11.8 % Eosinophils (%) (Auto) 1.9 % Basophils (%) (Auto) 1.2 % Neutrophils # (Auto) 2.6 TH/MM3 Lymphocytes # (Auto) 1.2 TH/MM3 Monocytes # (Auto) 0.5 TH/MM3 Eosinophils # (Auto) 0.1 TH/MM3 Basophils # (Auto) 0.1 TH/MM3 CBC Comment DIFF FINAL Differential Comment Prothrombin Time 10.7 SEC Prothromb Time International Ratio 1.1 RATIO Activated Partial Thromboplast Time 28.3 SEC Blood Urea Nitrogen 14 MG/DL Creatinine 0.82 MG/DL Random Glucose 81 MG/DL Calcium Level 8.6 MG/DL Sodium Level 133 MEQ/L Potassium Level 4.2 MEQ/L Chloride Level 99 MEQ/L Carbon Dioxide Level 23.3 MEQ/L Anion Gap 11 MEQ/L Estimat Glomerular Filtration Rate 66 ML/MIN MDM Medical Decision Making Medical Screen Exam Complete: Yes Emergency Medical Condition: Yes Medical Record Reviewed: Yes Interpretation(s) Laboratory Tests Test 03/21/18 18:15 Monocytes (%) (Auto) 11.8 % (0.0-8.0) Sodium Level 133 MEQ/L (136-145) Estimat Glomerular Filtration Rate 66 ML/MIN (>89) Last [address] 03/21/18 6704 Signed Impressions: CONCLUSION: 1. No acute intracranial abnormality is identified. 2. Stable chronic changes include mild generalized atrophy and mild periventri cular white matter low density. Differential Diagnosis Intracranial hemorrhage versus concussion versus dehydration versus electrolyte abnormalities Narrative Course Vital signs are stable in the ER, she was a bit hypertensive initially but her blood pressure came down on its own without issues. She was initially a little anxious about being in the ER. CAT scan did not show any signs of acute intracranial processes. Lab work was fairly unremarkable. And at this point, my plan would be to release her with follow-up to primary care doctor. Return for any worsening in symptoms as necessary. The plan has been discussed with her and she states understanding. Diagnosis Primary Impression: Fall Additional Impression: Minor head injury without loss of consciousness Disposition: 01 DISCHARGE HOME Condition: Stable Moi Webb MD Mar 21, 2018 18:00
[2018-03-21 18:15] VITALS: BP 196/87; PULSE 61; RESP 14; O2SAT 98
--- NOTE | 2018-03-21 18:18 | RADRPT ---
EXAM DATE: 03/21/2018 6:06 PM EDT AGE/SEX: 87 years / Female INDICATIONS: Fell and hit head. Visual disturbance for three days. CLINICAL DATA: This is the patient's initial encounter. Patient reports that signs and symptoms have been present for 4 - 6 days and indicates a pain score of 3/10. MEDICAL/SURGICAL HISTORY: Cardiovascular disease. Hypertension. Asthma. Pacemaker. Fusion, lumba r. Appendectomy. Cholecystectomy. Partial colectomy. Renal artery stent. Oophorectomy. RADIATION DOSE: 47.25 CTDI (mGy) COMPARISON: [facility], CT BRAIN W/O CONTRAST, 07/30/2015. . TECHNIQUE: CT of the head without contrast. Using automated exposure control and adjustment of the mA and/or kV according to patient size, radiation dose was kept as low as reasonably achievable to ob tain optimal diagnostic quality images. DICOM format image data is available electronically for revi ew and comparison. FINDINGS: Cerebrum: There is mild generalized atrophy and ventricles are normal given the degree of atrophy. M ild periventricular white matter change is present. No midline shift, mass lesion, hemorrhage or acu te infarction. No extraaxial fluid collections are seen. Posterior Fossa: The cerebellum and brainstem demonstrate no acute abnormality. The 4th ventricle is midline. The cerebellopontine angle is within normal limits. Extracranial: The visualized sinuses are clear. Skull: The calvaria is intact. No skull fracture. CONCLUSION: 1. No acute intracranial abnormality is identified. 2. Stable chronic changes include mild generalized atrophy and mild periventricular white matter low density. Electronically signed by: Sam Wu MD 03/21/2018 6:17 PM EDT
[2018-03-21 18:32] LABS: AUTOMATED NEUTROPHIL # 2.6 TH/MM3 (1.8-7.7); BASOPHIL # 0.1 TH/MM3 (0-0.2); BASOPHIL % 1.2 % (0.0-2.0); EOSINOPHIL # 0.1 TH/MM3 (0-0.4); EOSINOPHIL % 1.9 % (0.0-4.0); HEMATOCRIT 37.9 % (35.0-46.0); HEMOGLOBIN 12.8 GM/DL (11.6-15.3); LYMPH % 26.5 % (9.0-44.0); LYMPHOCYTE # 1.2 TH/MM3 (1.0-4.8); MEAN CELL VOLUME 93.8 FL (80.0-100.0); MEAN CORPUSCULAR HEMOGLOBIN 31.8 PG (27.0-34.0); MEAN CORPUSCULAR HGB CONC 33.8 % (32.0-36.0); MEAN PLATELET VOLUME 7.2 FL (7.0-11.0); MONO % 11.8 % (0.0-8.0); MONOCYTE # 0.5 TH/MM3 (0-0.9); NEUT % 58.6 % (16.0-70.0); PLATELET COUNT 209 TH/MM3 (150-450); RED BLOOD COUNT 4.03 MIL/MM3 (4.00-5.30); RED CELL DISTRIBUTION WIDTH 13.2 % (11.6-17.2); WHITE BLOOD COUNT 4.5 TH/MM3 (4.0-11.0)
[2018-03-21 18:45] LABS: CALCIUM 8.6 MG/DL (8.5-10.1)
[2018-03-21 18:46] LABS: BICARBONATE 23.3 MEQ/L (21.0-32.0)
[2018-03-21 18:47] LABS: INTERNATIONAL NORMALIZED RATIO 1.1 RATIO; PROTHROMBIN TIME - PATIENT 10.7 SEC (9.8-11.6)
[2018-03-21 18:50] LABS: CREATININE 0.82 MG/DL (0.50-1.00)
[2018-03-21 19:22] VITALS: BP 178/8
== END 2018-03-21 19:39 | disposition home or self-care (01) ==
LOC: PHED 16:43
DX: S09.90XA Unspecified injury of head, initial encounter (principal); I48.91 Unspecified atrial fibrillation; J45.909 Unspecified asthma, uncomplicated; M19.90 Unspecified osteoarthritis, unspecified site; I45.10 Unspecified right bundle-branch block; K58.9 Irritable bowel syndrome, unspecified; K21.9 Gastro-esophageal reflux disease without esophagitis; I10 Essential (primary) hypertension; M48.061 Spinal stenosis, lumbar region without neurogenic claudication; W01.0XXA Fall on same level from slipping, tripping and stumbling without subsequent striking against object, initial encounter; Y93.K1 Activity, walking an animal; Z79.01 Long term (current) use of anticoagulants; Z95.0 Presence of cardiac pacemaker; Z88.6 Allergy status to analgesic agent; Z88.2 Allergy status to sulfonamides; Z88.0 Allergy status to penicillin
CPT/HCPCS: 70450; 80048; 85025; 85610; 85730; 99284